=== PATIENT | female | born 1975 | race Caucasian/White ===

== ENCOUNTER 2019-03-14 20:00 | Outpatient (CLI) | payer MEDICAID, SELFPAY | END 2019-03-14 20:01 | disposition home or self-care (01) | LOC: SLEEP 03-15 09:35 | PROVIDERS: Visit Provider Internal Medicine | DX: G47.33 Obstructive sleep apnea (adult) (pediatric) (principal) | CPT/HCPCS: 95810; 95811 ==

== ENCOUNTER 2019-04-10 07:20 | Day surgery (SDC) | payer MEDICAID, SELFPAY ==
[2019-04-09 11:08] VITALS: BMI 38.2
[2019-04-10] VITALS (9 sets, daily range): BP systolic 104–128; BP diastolic 50–83; PULSE 50–68; RESP 14–20; TEMP 36.2–37; O2SAT 9–98
--- NOTE | 2019-04-10 07:56 | W.PM.OPSUD ---
Surgery/Procedure H&P Update DATE OF PROCEDURE: April 10, 2019 DATE H&P PERFORMED: 03/29/19 H&P UPDATE INFORMATION: I have reviewed H&P completed within last 30 days, I have examined patient prior to procedure and No changes to prior documentation PREOP DIAGNOSIS: Incisional hernia PLANNED PROCEDURE: Operation Date: 04/10/19 09:10 Proposed Procedures p Laparoscopic Incisional Hernia Repair w/ Mesh [id number] K43.2(Not Applicable) - Darío Zavala MD
[2019-04-10] MEDS: sodium chloride 0.9% 1,000 ML 30 ML IV (08:06)
--- NOTE | 2019-04-10 08:09 | ANES.PREANE2 ---
Pre-Anesthetic Assessment Pre-Anesthetic Assessment: Height/Weight: Height 1.65 m Weight 104.326 kg Temp Pulse Resp BP Pulse Ox 97.9 F 66 18 128/83 98 04/10/19 07:50 04/10/19 07:50 04/10/19 07:50 04/10/19 07:50 04/10/19 07:50 Preop Diagnosis: Incisional hernia Proposed Procedure: Operation Date: 04/10/19 09:10 Proposed Procedures p Laparoscopic Incisional Hernia Repair w/ Mesh [id number] K43.2(Not Applicable) - Darío Zavala MD Familial anesthetic complications: None Was Beta Olive taken within 24 hours: N/A Last intake: Intake Last Liquid Date 04/09/19 Last Liquid Time 22:00 Last Solid Date 04/09/19 Last Solid Time 21:30 Social: Social History: No alcohol and No tobacco Exam: Pre-Anes Outpt Exam: alert, oriented x 3, clear to auscultation bilaterally and regular rate & rhythm Airway: Cervical ROM: WNL MP: 2 Dentition: Chipped Additional comments: missing Pulmonary: Pulmonary: Asthma and Sleep apnea (cpap (she's getting it neck monday)) CV/HEM: CV/HEM: None reported : : None reported Hepatic: Comments: fatty liver GI: GI: GERD Metabolic: Metabolic: None reported Musc/skel: Musc/skel: None reported Neuropsych: Neuropsych: None reported Anesthetic Plan: ASA status: 2 Anesthesia: General Risk of > 500 ml blood loss (7ml/kg in children): No Meds/Allergies Current Medications: Current Medications Generic Name Dose Route Start Last Admin Trade Name Freq PRN Reason Stop Dose Admin Sodium Chloride 1,000 mls @ 30 ml s/hr 04/10/19 08:00 04/10/19 08:06 Sodium Chloride 0.9% IV 04/11/19 07:59 30 mls/hr .Q24H [place] Administration PFSH Anesthesia PFSH: Social History Smoking and tobacco status: never smoked Second hand smoke exposure: No Alcohol intake: never Adopted: No Caregiver/support person: Yes Lives independently: Yes Housing: House Marital status: Single service: No Current occupational status: disabled Current occupational exposures/hazards: No Pets and animals: No History of recent travel: No Leisure activites: exercise Sexually active: Yes Current gender identity: Female Female Reproductive History: Date of last menstrual period: 04/08/19 Data Anesthesia Cardiac Studies: No Data to Display
--- NOTE | 2019-04-10 12:22 | SUR.PHASEI ---
1222- ORAL AIRWAY OUT. SIMPLE MASK AT 6LPM, SAT 99%
--- NOTE | 2019-04-10 12:56 | P.OP_ITS ---
Operative Report Date of procedure: April 10, 2019 Pre-op Diagnosis: Incisional hernia Post-op Diagnosis: Recurrent incarcerated incisional hernia containing omentum and small bowel with multiple Australian cheese defects Procedure Done: Laparoscopic repair of incisional hernia with Laparoscopic lysis of adhesions 30 minutes Pathology: none sent Surgeon: Darío Zavala Anesthesia: General Condition: stable Disposition: PACU Procedure: The patient was taken to the Operating Room and was intubated under general anesthesia after the antibiotic had been administered. The abdomen was prepped and draped in a sterile manner. Using a 15 blade, a 2-cm incision was made in the right upper quadrant in the anterior axillary line and pneumoperitoneum was created using open Barboza technique . A 10 mm Lizabeth port was placed and 15 mm of pneumoperitoneum was created after a 10 mm 30? scope had been introduced. 5 mm ports were placed at the level of the umbilicus and in the right and left lower quadrant under direct visualization. Using a combination of electrocautery and scissors the peritoneum in the midline was taken down and the omental fat within the hernial sac was reduced. There was a second hernia defect inferiorly containing small bowel which was also reduced. there was a second hernia defect inferiorly containing small bowel which was also reduced. There were adhesions in the superior aspect of the laparotomy scar which was taken down using electrocautery and scissors. Laparoscopic lysis of adhesions was performed for about 30 minutes.The dissection was carried superiorly along the midline by taking down the falciform ligament in order to create a space for placement of the mesh. There were multiple Australian cheese defects along the entire length of the laparotomy scarthere are multiple cysts cheese defects along the entire length of the laparotomy scar. . A spinal needle was introduced through the abdominal wall and the edges of the hernial defect were marked and measured 18 x 12 cm . A 3-4 cm margin was marked on the abdominal wall on the outer edge of the hernial defect. 25 x [address] mesh was selected and 4 separate 2-0 [place] sutures were placed at the 4 corners of the mesh. A 5 mm camera was introduced and the mesh was introduced through the 10 mm port. Grannie needle was passed through the stab incisions and used to grasp the free ends of the [place] sutures which were then used to pull the mesh up against the abdominal wall; 5 mm SecurStraps and Optifix were placed 1 cm apart along the edge of the mesh to hold it against the abdominal wall. At the end of this, it was noted that the mesh was well positioned over the hernial defect. 20 mL of saline with 20 mL of 0.5% Marcaine was to 20 mL of Exparel was injected under laparoscopic visualization for TAP block. All ports were removed under direct visualization and there was no bleeding noted from the port sites. The external oblique aponeurosis was approximated at this port site using figure of eight 0 Vicryl suture. The subcutaneous tissue was approximated using 3-0 Vicryl sutures. The skin at all 4 port sites was closed using subcuticular 4-0 Monocryl suture. The stab incisions and the 4 port sites were covered with Dermabond. Abdominal binder was placed at the end of the procedure.
[2019-04-10] MEDS: ondansetron 2 mg/ML SDV 2 mL 4 MG IVP (13:14)
--- NOTE | 2019-04-10 13:14 | SUR.PHASEII ---
MEDICATED FOR NAUSEA. FAMILY AT BEDSIDE.
== END 2019-04-10 14:15 | disposition home or self-care (01) ==
PROVIDERS: PCP Nurse Practitioner Family; Visit Provider Surgery
PROC: 0WQF4ZZ Repair Abdominal Wall, Percutaneous Endoscopic Approach (ICD-10-PCS; CPT 49657; principal; 2019-04-10 09:10)
DX: K43.0 Incisional hernia with obstruction, without gangrene (principal); K21.9 Gastro-esophageal reflux disease without esophagitis
CPT/HCPCS: 49657; 12345; C1781; C9290; J0131; J0690; J1100; J1200; J1885; J2001; J2250; J2405; J2704; J2710; J3490; J7030

== ENCOUNTER 2019-04-21 03:57 | Observation (INO) | payer MEDICAID, SELFPAY ==
[2019-04-21] VITALS (15 sets, daily range): BP systolic 96–108; BP diastolic 59–80; PULSE 67–107; RESP 16–24; TEMP 36.8–37.1; O2SAT 95–97; BMI 37.3
--- NOTE | 2019-04-21 04:12 | CTR_ITS ---
PROCEDURE INFORMATION: Exam: CT Abdomen And Pelvis With Contrast Exam date and time: 04/21/2019 5:45 AM Age: 43 years old Clinical indication: Abdominal pain; Generalized; Prior surgery; Surgery date: <1 month; Patient HX: C/O n/v/d and worsening abd since mesh surgery 11 days ago; Additional info: [place], gi bleed, post op TECHNIQUE: Imaging protocol: Computed tomography of the abdomen and pelvis with intravenous contrast. Total DLP: 2011.36 mGy-cm Radiation optimization: All CT scans at this facility use at least one of these dose optimization techniques: automated exposure control; mA and/or kV adjustment per patient size (includes targeted exams where dose is matched to clinical indication); or iterative reconstruction. Contrast material: OMNI 300; Contrast volume: 95 ml; Contrast route: 22G; COMPARISON: CT Chest/Abdomen/Pelvis w IV* 10/19/2018 1:26 AM FINDINGS: Lungs: Continued slight atelectasis in the right lower lobe. Liver: No interval liver disease. Gallbladder and bile ducts: Cholecystectomy again evident. Pancreas: Still no apparent pancreatic disease. Spleen: Continued absence of the spleen. Adrenals: Still no adrenal mass. Kidneys and ureters: Interval appearance of a small stone in the upper right kidney. Interval disappearance of 1 of the 2 small stones from the upper left kidney. Continued small stone in the left lower kidney. Still no hydronephrosis. Stomach and bowel: Suspicion of adhesions. No apparent bowel obstruction. No obvious wall thickening in the bowel. Extensive vascular prominence in the small bowel mesentery. Appendix: Appendectomy suspected. Intraperitoneal space: No free air. Interval mild amount of free fluid in the pelvis containing anterior density of 14 HU and posterior density of 27 HU. Vasculature: Interval slight decrease in size of the [id number] left ovarian varix. Bilateral pelvic varices slightly more evident previously. Continued left para-aortic varices just above the aortic bifurcation. Continued atherosclerosis. Still no aortic aneurysm. Lymph nodes: Enlarged bilateral inguinal nodes again evident. Continued enlarged left external iliac node. Multiple other prominent or slightly enlarged nodes evident in each pelvic sidewall. Multiple nonenlarged nodes still present along the distal aorta. Continued slight prominence of a few periportal nodes. Bladder: Unremarkable as visualized. Reproductive: Unremarkable as visualized. Bones/joints: Old compression fractures again evident. Continued degeneration of several discs. Soft tissues: Interval appearance of the mesh along the posterior aspect of the mid abdominal wall and of the fluid along the posterior margin of the mesh as well as probably extending slightly superior to it behind the epigastric wall containing density of 21 HU; focal posterior bulging of density measuring 44 HU from the superior extent of the fluid behind the epigastric wall having a length of 2.8 cm, depth of 3 cm and width of about 3.8 cm. 19 mm wide rounded area of density measuring 37 HU in the right omentum near the focal posterior bulging. Haziness elsewhere in the omentum. Suspicion of extension of the mesh through a defect in the left supraumbilical abdominal wall into the subcutaneous fat with fluid in this 4.7 cm long by 4 cm deep by 4.9 cm wide hernia measuring 12 HU; positioning of this hernia in the area of a prior hernia containing fat. Interval clearance of bowel from within the left periumbilical hernia and slight decrease in its size, with extension of part of the mesh into this hernia also suspected; fluid within the hernia measuring 17 HU. Interval stranding and haziness in the subcutaneous fat in the right superior and inferior anterior abdominal wall. No gas bubbles in the anterior abdominal wall. CT/CT abdomen pelvis w con* [id number] IMPRESSION: 1. Interval appearance of the mesh along the anterior abdominal wall; high suspicion of invagination of the mesh into the 2 hernias previously seen in the supraumbilical and periumbilical aspects of the left abdominal wall. Interval fluid along the posterior and superior aspects of the mesh with extension of the fluid into the hernias. Posterior bulging of the superior extent of the fluid behind the epigastric abdominal wall, with higher density in this area indicating a possible hematoma; smaller focus of soft tissue density in the right parasagittal omentum in this region possibly representing an additional hematoma. Haziness elsewhere in the omental fat. No gas bubbles in the anterior abdominal abnormalities to suggest the high likelihood of an abscess, therefore seroma or chronic hematoma the more likely considerations for most of the fluid in the anterior abdomen. 2. Interval mild free fluid in the pelvis possibly having a slightly hemorrhagic component. Extensive vascular prominence in the small bowel mesentery. No apparent bowel wall thickening. Suspicion of adhesions. No bowel obstruction. 3. Nephrolithiasis again evident. Interval slight changes in the renal stones detailed above. Still no hydronephrosis. 4. Interval slight decrease in size of the [id number]-uk-uqzmyxyp left ovarian varix. Bilateral pelvic varices slightly more evident previously. Continued left para-aortic varices just above the aortic bifurcation. 5. Enlarged bilateral inguinal nodes and an enlarged left external iliac node again evident. Multiple other prominent or slightly enlarged nodes still present in each pelvic sidewall along with multiple nonenlarged nodes along the distal aorta and slight prominence of a few periportal nodes. Questionable reactive nature of these nodes considering their stability. 6. Continued absence of the spleen. Other findings detailed above. Radiation Dose CTDIVOL = (mGy): DLP = 2011.36 (mGy-cm)
--- NOTE | 2019-04-21 04:18 | ED_ITS ---
Entered by Sheila Pizaon, acting as scribe for Claudy Pike DO Apr 21, 2019 03:57 HPI - Nausea/Vomiting/Diarrhea General: Chief complaint: Nausea/Vomiting/Diarrhea Stated complaint: N/V WITH BLOOD/ POST OP Time Seen by Provider: 04/21/19 04:11 Source: patient and family Mode of arrival: ambulatory History of Present Illness: HPI Narrative: 43 y/o female presents to the ED with abd pain. Pt states she had hernia repair surgery 11 days ago and had mesh placement. She has not had a chance to follow up with her surgeon and has not had any complications until now. She reports waking up with sharp, tearing pain in her upper abd. She has had N/V, secondary to her pain. Pt is in tears upon exam and says that, even her skin hurts. MD elicited complaint: nausea, vomiting and abdominal pain Pertinent past history: hernia (recent repair) Onset (ago): hour(s) Associated nausea: Yes Associated abdominal pain: Yes Location of pain: Epigastric and Periumbilical Pain consistency: constant Severity: severe Pain scale (0-10): 9 Quality: stabbing and sharp Exacerbating factors: bowel movement Relieving factors: none Context: recent surgery/procedure and history of abdominal surgery Associated symtoms: Reports nausea; Denies anxiety, change in vision, chest pain, dizziness, dysuria, headache(s) or palpitations Review of Systems Const: Denies: fever or chills Eyes: Denies: change in vision or blurry vision ENMT: Denies: post nasal drip or facial/sinus pain Card: Denies: chest pain, palpitations, irregular heart rhythm or edema Resp: Denies: shortness of breath, productive cough, non-productive cough or wheezing GI: Reports: abdominal pain, nausea and vomiting : Denies: painful urination, urinary frequency, urinary urgency or blood in urine Musc: Denies: neck pain, back pain, redness or joint warmth Skin/Breast: Reports: skin pain and skin tenderness (abd); Denies: rash, itching or redness Neuro: Denies: headache, dizziness or vertigo Psych: Denies: anxiety PFSH ED PFSH: 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 Incisional hernia Surgical History H/O esophagogastroduodenoscopy History of appendectomy History of cholecystectomy History of colonoscopy History of incisional hernia repair 04/10/19 : lap repair History of splenectomy History of tubal ligation Family History Grandmother Cancer Breast Denies family history of Anesthesia complication Bleeding disorder Social History Smoking and tobacco status: current some day smoker Second hand smoke exposure: No Alcohol intake: never Adopted: No Caregiver/support person: Yes Lives independently: Yes Housing: House Marital status: Single service: No Current occupational status: disabled Current occupational exposures/hazards: No Pets and animals: No History of recent travel: No Leisure activites: exercise Sexually active: Yes Current gender identity: Female Female Reproductive History: Date of last menstrual period: 04/11/19 Physical Exam Const: COMMON NORMALS: alert GENERAL APPEARANCE: well developed NUTRITIONAL APPEARANCE: overweight ORIENTATION/CONSCIOUSNESS: Yes awake, Yes oriented to person, Yes oriented to place and Yes oriented to time HENMT: COMMON NORMALS: normocephalic, external ears normal, external nose norm al and moist oral mucous membranes HEAD & SCALP: normocephalic FACE & SINUS: normal facial exam NOSE: external nose normal and no nasal discharge EXTERNAL EAR: Yes external ears normal MOUTH: tongue normal Eye: COMMON NORMALS: PERRL, EOMs intact bilaterally and conjunctivae normal EYELID: eyelids normal CONJUNCTIVA: Yes conjunctivae normal PUPIL: Yes PERRL Neck/C-Spine: COMMON NORMALS: full ROM Chest: COMMONS NORMALS: inspection of chest normal CHEST: Yes symmetrical chest wall rise and No tenderness Resp: COMMON NORMALS: clear to auscultation bilaterally EFFORT & INSPECTION: No tachypneic, No respiratory distress, No retractions, No uses accessory muscles and No tracheal deviation AUSCULTATION: clear to auscultation bilaterally, no rhonchi, no wheezes and lung sounds not diminished Cardio: COMMON NORMALS: regular rate and regular rhythm RATE: regular rate RHYTHM: regular rhythm HEART SOUNDS: no murmurs PERIPHERAL PULSES: radial pulses present GI: COMMON NORMALS: soft to palpation AUSCULTATION: No hyperactive bowel sounds and No hypoactive bowel sounds PALPATION: Yes soft, Yes tender, Yes guarding and No rigid PERCUSSION: no dullness to percussion and no tympanic to percussion Neuro: SENSORIUM/ORIENTATION: Yes alert, Yes oriented to person, Yes oriented to place and Yes oriented to time Psych: COMMON NORMALS: speech normal SPEECH: Yes normal speech MOOD & AFFECT: Yes tearful Skin: COMMON NORMALS: no rashes or lesions noted GENERAL SKIN EXAM: no rashes or lesions noted Course Vital Signs: Vital signs: Vital Signs Temperature 98.4 F 04/21/19 20:00 Pulse Rate 71 04/21/19 20:00 Respiratory Rate 16 04/21/19 20:56 Blood Pressure 105/72 04/21/19 20:00 Pulse Oximetry 96 04/21/19 20:00 MDM - Nausea/Vomiting/Diarrhea MDM Narrative: Medical decision making narrative: 43-year-old female 10 days or so out from abdominal hernia repair with mesh. She presents with sudden onset of significant pain. She has a leukocytosis and a high CRP. CT shows a probable hematoma, with some fluid in the pelvis that could be hemorrhage. Spoke with the surgeon on-call, he agrees to observe the patient for repeat exam, fluid resuscitation, etc. Lab Data: Labs: Lab Results 04/21/19 04/21/19 04/21/19 Range/Units 05:45 05:45 06:45 WBC 12.3 H (4.0-10.0) 10^3/ uL RBC 4.25 (4.1-5.3) 10^6/u L Hgb 12.5 (11.5-15.3) g/dL Hct 38.9 (37.0-47.0) % MCV 91.5 (81-99) fL MCH 29.4 (28.0-34.0) pg MCHC 32.1 (30.0-36.0) g/dL RDW 15.1 (12.1-15.1) % Plt Count 349 (130-400) 10^3/c mm MPV 10.0 (7.4-10.4) fL Neut % (Auto) 70.3 % Lymph % (Auto) 16.4 % [place] % (Auto) 9.3 % Eos % (Auto) 2.8 % Baso % (Auto) 0.4 % Neut # (Auto) 8.7 H (1.8-7.7) 10^3/u L Lymph # (Auto) 2.0 (0.8-4.8) 10^3/u L [place] # (Auto) 1.1 H (0.2-0.9) 10^3/u L Eos # (Auto) 0.3 (0.0-0.8) 10^3/u L Baso # (Auto) 0.1 (0.0-0.1) 10^3/u L Nucleated RBC % (a uto) 0 % Nucleated RBCs # 0.0 /100WBC Sodium 138 (136-145) mmol/L Potassium 4.4 (3.5-5.1) mmol/L Chloride 104 (98-107) mmol/L Carbon Dioxide 24 (22-29) mmol/L Anion Gap 14.4 (5-19) BUN 7 (6-20) mg/dL Creatinine 0.5 (0.5-0.9) mg/dL GFR Calculation 136.0 H (90-130) mL/min Glucose 153 H (65-115) mg/dL Calculated Osmolal ity 285 (285-295) mOsm/k g Calcium 8.1 L (8.5-10.5) mg/dL Total Bilirubin 1.5 H (0.15-1.2) mg/dL AST 35 H (0-32) U/L ALT 22 (0-33) U/L Alkaline Phosphata se 416 H (35-105) IU/L C-Reactive Protein 63.5 H (0.0-4.9) mg/L Total Protein 7.4 (6.6-8.7) g/dL Albumin 2.7 L (3.5-5.2) g/dL Globulin 4.7 H (1.3-4.6) g/dL Lipase 21 (13-60) U/L Urine Color Yellow (Yellow) Urine Appearance Cloudy (CLEAR) Urine pH 5 (5-7) Ur Specific Gravit y 1.015 (1.005-1.030) Urine Protein Neg (Negative) Urine Glucose (UA) Norm (Normal) Urine Ketones Negative (Negative) Urine Blood Neg (Negative) Urine Nitrate Negative (Negative) Urine Bilirubin 1+ H (NEGATIVE) Urine Urobilinogen 8 H (Negative) mg/dL Ur Leukocyte Jenni ase 1+ H (Negative) Urine RBC None (0-2) /hpf Urine WBC 15-25 H (0-5) /hpf Ur Squamous Epith Cells 15-25 H (0-5) Urine Bacteria 1+ H (NONE) Discharge Plan Discharge Patient Disposition: Admitted As Inpatient Admit Provider: Roger Ghosh Discharge Date/Time: 04/21/19 08:30 Coding Level of Care Code ED Bucket Pusher for Chg Fwd Exam Comprehensive The documentation recorded by the Harinder swanson Ashley, accurately reflects the service I personally performed and the decisions made by Shahzad lipscomb Jeremy John, DO Apr 21, 2019 03:57
[2019-04-21] MEDS: sodium chloride 0.9% 1,000 ML 999 ML IV (05:00)
[2019-04-21] MEDS: HYDROmorphone 1 mg/mL INJ 1 mL IVP ×5 (05:11→20:56)
[2019-04-21] MEDS: ondansetron 2 mg/ML SDV 2 mL 4 MG IVP (05:12)
[2019-04-21] MEDS: iohexol 300 mg/mL 100 mL Btl IV (05:23)
[2019-04-21 06:02] LABS: Basophils # 0.1 10^3/uL (0.0-0.1); Basophils % 0.4 %; Eosinophils # 0.3 10^3/uL (0.0-0.8); Eosinophils % 2.8 %; Hematocrit 38.9 % (37.0-47.0); Hemoglobin 12.5 g/dL (11.5-15.3); Lymphocytes % 16.4 %; Mean Corpuscular HGB Conc 32.1 g/dL (30.0-36.0); Mean Corpuscular Hemoglobin 29.4 pg (28.0-34.0); Mean Corpuscular Volume 91.5 fL (81-99); Monocytes # 1.1 10^3/uL (0.2-0.9); Monocytes % 9.3 %; Neutrophils # 8.7 10^3/uL (1.8-7.7); Neutrophils % 70.3 %; Nucleated Red Blood Cells % 0 %; Platelet Count 349 10^3/cmm (130-400); Red Blood Count 4.25 10^6/uL (4.1-5.3); Red Cell Distribution Width 15.1 % (12.1-15.1); White Blood Count 12.3 10^3/uL (4.0-10.0)
[2019-04-21 06:28] LABS: Alanine Aminotransferase 22 U/L (0-33); Albumin Level 2.7 g/dL (3.5-5.2); Alkaline Phosphatase 416 IU/L (35-105); Anion Gap 14.4 (5-19); Aspartate Amino Transferase 35 U/L (0-32); Blood Urea Nitrogen 7 mg/dL (6-20); C Reactive Protein 63.5 mg/L (0.0-4.9); Calcium 8.1 mg/dL (8.5-10.5); Carbon Dioxide 24 mmol/L (22-29); Chloride 104 mmol/L (98-107); Globulin 4.7 g/dL (1.3-4.6); Glucose 153 mg/dL (65-115); Lipase 21 U/L (13-60); Osmolality Calculated 285 mOsm/kg (285-295); Potassium 4.4 mmol/L (3.5-5.1); Sodium 138 mmol/L (136-145); Total Bilirubin 1.5 mg/dL (0.15-1.2); Total Protein 7.4 g/dL (6.6-8.7)
[2019-04-21 06:51] LABS: Bilirubin Urine 1+ (NEGATIVE); Blood Urine Neg (Negative); Glucose Urine UA Norm (Normal); Ketones Urine Negative (Negative); Nitrate Urine Negative (Negative); Protein Urine Neg (Negative); Specific Gravity, Urine 1.015 (1.005-1.030); Urine Appearance Cloudy (CLEAR); Urine Color Yellow (Yellow); pH Urine 5 (5-7)
[2019-04-21 06:52] LABS: Add Urine Microscopic? YES; Leukocyte Esterase Urine 1+ (Negative); Urobilinogen Urine 8 mg/dL (Negative)
[2019-04-21] MEDS: HYDROmorphone 1 mg/mL INJ 1 mL 0.5 MG IVP (06:53)
[2019-04-21 06:55] LABS: Add Urine Culture? No; Bacteria Urine 1+; Squamous Epithelial Cell Urine 15-25 (0-5); WBC Urine 15-25 /hpf (0-5)
--- NOTE | 2019-04-21 08:25 | PC.NURSE ---
Pt transport upstairs delayed so surgeon (Giurgis) could assess patient.
--- NOTE | 2019-04-21 08:28 | PM.HP ---
Providers/Chief Complaint Admitting Physician: Roger Ghosh MD Primary Care Provider: Oriana Huff Chief Complaint: N/V WITH BLOOD/ POST OP History of Present Illness Dedire Hutchins is a pleasant 43 year old female undergone laparoscopic recurrent ventral incisional hernia repair about 10 days ago by my partner Dr. Zavala, patient was discharged home after surgery and yesterday she started to encounter worsening abdominal pain in the middle of her abdomen in the middle of the night, patient denies any fevers chills yet she did have some vomiting and as the pain got worse she elected to come to the emergency department where a CT scan of the abdomen and pelvis was done that showed: Postoperative changes including fluid collection that could represent seroma/hematoma with questionable infolding of the mesh. But no evidence of free air or pneumatosis intestinalis General surgery was consulted for potential evaluation and intervention, patient was seen and evaluated in the emergency department. 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 She states that since then she has had more hernia repairs. Apparently the patient had a recurrent hernia before moving to [place] and she elected to wait till it gets fixed, was seen and evaluated by my partner and she agreed to proceed with laparoscopic ventral incisional hernia repair with mesh placement. 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 Incisional hernia Surgical History H/O esophagogastroduodenoscopy History of appendectomy History of cholecystectomy History of colonoscopy History of incisional hernia repair 04/10/19 : lap repair History of splenectomy History of tubal ligation Family History Grandmother Cancer Breast Denies family history of Anesthesia complication Bleeding disorder Social History Smoking and tobacco status: current some day smoker Second hand smoke exposure: No Alcohol intake: never Adopted: No Caregiver/support person: Yes Lives independently: Yes Housing: House Marital status: Single service: No Current occupational status: disabled Current occupational exposures/hazards: No Pets and animals: No History of recent travel: No Leisure activites: exercise Sexually active: Yes Current gender identity: Female Female Reproductive History: Date of last menstrual period: 04/11/19 Vitals/I&O/Wt Last Vital Signs Temp 98.7 F 04/21/19 04:05 Pulse 90 04/21/19 07:34 Resp 16 04/21/19 06:53 BP 106/65 04/21/19 07:34 Pulse Ox 96 04/21/19 07:34 04/20/19 04/21/19 04/21/19 22:59 06:59 14:59 Intake Total 1000 / 1000 Balance 1000 / 1000 Weight last 48 hrs Weight 224 lb Physical Exam Const: COMMON NORMALS: no apparent distress GENERAL APPEARANCE: cooperative ORIENTATION/CONSCIOUSNESS: Yes awake, Yes oriented to person, Yes oriented to place and Yes oriented to time HENMT: COMMON NORMALS: normocephalic HEAD & SCALP: normocephalic Eye: COMMON NORMALS: PERRL and no scleral icterus PUPIL: Yes PERRL Lymph: LYMPHATIC: no lymphadenopathy noted Chest: COMMONS NORMALS: inspection of chest normal Resp: COMMON NORMALS: normal respiratory effort and clear to auscultation bilaterally AUSCULTATION: clear to auscultation bilaterally Cardio: COMMON NORMALS: S1 normal heart sound and S2 normal heart sound; negative for no murmurs HEART SOUNDS: S1 normal and S2 normal GI: COMMON NORMALS: soft to palpation; negative for no hepatosplenomegaly INSPECTION: Yes normal to inspection PALPATION: Yes soft, No firm, Yes tender (Mostly in the epigastric and right upper quadrant and right lower quadrant), No guarding, No rigid and No no hepatosplenomegaly Data : 04/21/19 05:45 04/21/19 05:45 A&P Assessment and plan (1) Postoperative seroma: After thorough history physical examination and reviewing the chart and images with my personal interpretation, I do believe that the patient has postoperative seroma/hematoma expected after laparoscopic ventral incisional hernia repair. Pain control IV fluid resuscitation Repeated physical examination Ice packs 3-4 times a day as needed on areas of concern Assurance and education as patient is very anxious not to catch her cancer treatment appointment this coming Monday in [place]. Resume Home meds Repeat labs in the morning Likely the patient should benefit from conservative management and emphasis on placement of the abdominal binder Status: Acute Attestations Medical Necessity Statement*: Observation status Time Spent in Patient Care: 16 - 35 minutes (>than 50% of time spent in counselling and/or direct pt care on unit). Coding Level of Care Code Acute Online Project Manager for [employer] Fwd Exam Comprehensive Diagnoses Postoperative seroma
[2019-04-21] MEDS: lactated ringers 1,000 ML 125 ML IV ×2 (08:36→16:22)
--- NOTE | 2019-04-21 10:44 | PC.CHAP ---
Pastoral Care Encounter/Spiritual Assessment Type of Contact [] Declined building rental superintendent visit [] Patient/Family/Request visit [] Outpatient visit [] Follow-up visit [] Physician referral [] Code/Alert [] Routine visit [] Staff referral [] Actively dying [] Patient sleeping [] Family support [] [] Out of room [] Palliative care [] [] Receiving care in room [] Pre-surgical visit [] Trauma [] Long length of stay [] ICU visit [] Other: Relational/Emotional Strength [x] Patient feels connected with others/family/visitors/staff [] Distress [] Loneliness/isolation [] Abandonment Spirituality of Patient [] Person of Mica [] Attends Orthodox of their Mica [x] Believes in Prayer [] Reads Bible or Buddhism materials [] There are Spiritual issues to be addressed Real Estate Listing Consultant Interventions [x] Prayer [x] Active listening [x] Non-anxious presence [x] Spiritual/emotional support [] Crisis/trauma care [] Spiritual counseling [] Bereavement support [] Provided bereavement packet [] Provided Bible/devotional materials [] Provided toy/stuffed animal, coloring book to patient or family member [] Provided Communion [] Anointing/[place] [] Salvation [x] Completed spiritual assessment [] Other: Impact on Illness or Injury [] Angry [] Fearful [] Anxious [] Often cries [] Exhaustion [] Unable to work [] Unable to attend amish [] Unable to walk/stand [] Unable to read [] Unable to drive [] Unable to eat/drink [] Unable to sleep [] Unable to be with family [] Patient intubated [] Other: Summary Chaplains prayed with Patient and visitor friend. Time spent with patient 8 minutes.
[2019-04-21] MEDS: famotidine 20 mg/2 mL INJ IVP (16:22)
[2019-04-22] VITALS (8 sets, daily range): BP systolic 96–112; BP diastolic 58–70; PULSE 61–72; RESP 14–20; TEMP 36.4–36.9; O2SAT 92–96
[2019-04-22] MEDS: HYDROmorphone 1 mg/mL INJ 1 mL IVP ×3 (01:02→08:37)
[2019-04-22] MEDS: lactated ringers 1,000 ML 125 ML IV ×2 (01:02→09:26)
[2019-04-22] MEDS: famotidine 20 mg/2 mL INJ IVP (02:26)
[2019-04-22] MEDS: ondansetron 2 mg/ML SDV 2 mL 4 MG IVP (02:54)
--- NOTE | 2019-04-22 05:42 | PM.PN ---
Vitals/I&O/Wt Last Vital Signs Temp 97.7 F 04/22/19 04:00 Pulse 61 04/22/19 04:00 Resp 16 04/22/19 05:08 BP 112/70 04/22/19 04:00 Pulse Ox 95 04/22/19 04:00 04/21/19 04/21/19 04/22/19 14:59 22:59 06:59 Intake Total 1000 / 1000 970.833 / 8101.350 3902 / 2970.833 Output Total 700 / 700 Balance 1000 / 1000 970.833 / 1970.833 300 / 2270.833 Weight last 48 hrs Weight 224 lb Data : 04/21/19 05:45 04/21/19 05:45 Coding Level of Care Code Acute Supervisor [employer] for Eldon Urban
[2019-04-22 06:29] LABS: Basophils % 0.4 %; Eosinophils # 0.6 10^3/uL (0.0-0.8); Eosinophils % 5.6 %; Hematocrit 37.8 % (37.0-47.0); Hemoglobin 12.1 g/dL (11.5-15.3); Lymphocytes # 2.1 10^3/uL (0.8-4.8); Lymphocytes % 19.6 %; Mean Corpuscular Volume 93.6 fL (81-99); Mean Platelet Volume 10.3 fL (7.4-10.4); Monocytes # 1.1 10^3/uL (0.2-0.9); Monocytes % 10.3 %; Neutrophils # 6.7 10^3/uL (1.8-7.7); Neutrophils % 63.3 %; Nucleated Red Blood Cells % 0 %; Platelet Count 301 10^3/cmm (130-400); Red Blood Count 4.04 10^6/uL (4.1-5.3); Red Cell Distribution Width 15.5 % (12.1-15.1); White Blood Count 10.5 10^3/uL (4.0-10.0)
[2019-04-22 06:58] LABS: Alanine Aminotransferase 18 U/L (0-33); Albumin Level 2.7 g/dL (3.5-5.2); Alkaline Phosphatase 350 IU/L (35-105); Anion Gap 12.2 (5-19); Aspartate Amino Transferase 28 U/L (0-32); Blood Urea Nitrogen 6 mg/dL (6-20); Calcium 8.5 mg/dL (8.5-10.5); Carbon Dioxide 28 mmol/L (22-29); Chloride 103 mmol/L (98-107); Globulin 4.3 g/dL (1.3-4.6); Glomerular Filtration Rate 175.9 mL/min (90-130); Glucose 91 mg/dL (65-115); Osmolality Calculated 283 mOsm/kg (285-295); Potassium 4.2 mmol/L (3.5-5.1); Sodium 139 mmol/L (136-145); Total Bilirubin 2.6 mg/dL (0.15-1.2)
--- NOTE | 2019-04-22 10:54 | PM.PN ---
Subjective Subjective: Interval history: Patient is feeling a lot better, denies any nausea or vomiting, tolerating diet Vitals/I&O/Wt Last Vital Signs Temp 98.0 F 04/22/19 07:24 Pulse 68 04/22/19 07:24 Resp 16 04/22/19 08:37 BP 101/61 04/22/19 07:24 Pulse Ox 93 04/22/19 08:37 04/21/19 04/22/19 04/22/19 22:59 06:59 14:59 Intake Total 970.833 / 2970.833 1000 / 2970.833 1360 / 1360 Output Total 700 / 700 Balance 970.833 / 2270.833 300 / 2270.833 1360 / 1360 Weight last 48 hrs Weight 224 lb Physical Exam Narrative: EXAM NARRATIVE: Abdomen: Soft, nontender, nondistended incisions healing well Data : 04/22/19 05:29 04/22/19 05:29 A&P Assessment and plan (1) History of incisional hernia repair: Doing well DC home today Status: Acute Code(s): Z98.890 - Other specified postprocedural states; Z87.19 - Personal history of other diseases of the digestive system Attestations Medical Necessity Statement*: DC home today Coding Level of Care Code Acute Manager Business Management for Eldon Urban Diagnoses History of incisional hernia repair Z98.890; Z87.19
--- NOTE | 2019-04-22 10:55 | P.DS_ITS ---
Discharge Providers Date of Admission: 04/21/19 07:32 Date of Discharge: April 22, 2019 Attending Provider at Admission: Darío Zavala MD Attending Provider at Discharge: Darío Zavala MD Primary Care Provider: Oriana Huff Diagnoses at Discharge Discharge Diagnosis (1) History of incisional hernia repair: Status: Acute Problem details: 04/10/19 : lap repair Reason for Visit Reason for Visit: Reason For Visit: N/V WITH BLOOD/ POST OP Hospital Course Hospital Course: This is a 43-year-old female who had undergone incisional hernia repair on 04/10/2019. Patient had been doing well until day before yesterday when she started having severe abdominal pain nausea and vomiting. She was seen in the ER where CT scan showed a postop seroma/hematoma. She was admitted for overnight observation. This morning her vital signs are stable, she is ambulating, her pain is well controlled and her incisions are clean dry and intact Physical Exam Narrative: EXAM NARRATIVE: Abdomen: Nontender, nondistended incisions healing well Discharge Data Data Completed and Pending: Completed Studies During Hospitalization Category Date Time Status CT abdomen pelvis w con* [id number] Urge nt Cat Scan 04/21/19 04:12 Completed Labs from last 24 hours 04/22/19 04/22/19 05:29 05:29 WBC 10.5 H RBC 4.04 L Hgb 12.1 Hct 37.8 MCV 93.6 MCH 30.0 MCHC 32.0 RDW 15.5 H Plt Count 301 MPV 10.3 Neut % (Auto) 63.3 Lymph % (Auto) 19.6 [place] % (Auto) 10.3 Eos % (Auto) 5.6 Baso % (Auto) 0.4 Neut # (Auto) 6.7 Lymph # (Auto) 2.1 [place] # (Auto) 1.1 H Eos # (Auto) 0.6 Baso # (Auto) 0.0 Nucleated RBC % (a uto) 0 Nucleated RBCs # 0.0 Sodium 139 Potassium 4.2 Chloride 103 Carbon Dioxide 28 Anion Gap 12.2 BUN 6 Creatinine 0.4 L GFR Calculation 175.9 H Glucose 91 Calculated Osmolal ity 283 L Calcium 8.5 Total Bilirubin 2.6 H AST 28 ALT 18 Alkaline Phosphata se 350 H Total Protein 7.0 Albumin 2.7 L Globulin 4.3 Vitals: Last Vital Signs Temp 98.0 F 04/22/19 07:24 Pulse 68 04/22/19 07:24 Resp 16 04/22/19 08:37 BP 101/61 04/22/19 07:24 Pulse Ox 93 04/22/19 08:37 Discharge Plan Discharge Patient Disposition: Home, Self-Care Condition: Stable Prescriptions: New Percocet 5-325 mg tablet 1 tab PO Q6H PRN (Reason: pain) Qty: 20 RF: 0 docusate sodium [Colace] 100 mg capsule 100 mg PO BID Qty: 60 RF: 0 Continued albuterol sulfate 90 mcg/actuation HFA aerosol inhaler 2 puff INHALATION Q6H PRN (Reason: sob) RF: 0 azathioprine 100 mg tablet 100 mg PO DAILY RF: 0 hydrocodone-acetaminophen 10-325 mg tablet 1 tab PO Q8H PRN (Reason: pain) RF: 0 triamcinolone acetonide 0.1 % cream 1 applic TOPICAL TID RF: 0 hydroxyzine HCl 50 mg tablet 50 mg PO DAILY RF: 0 ibuprofen 600 mg tablet 600 mg PO Q6H PRN (Reason: pain) RF: 0 lidocaine 5 % adhesive patch,medicated 1 patch TOPICAL DAILY RF: 0 loratadine 10 mg tablet 10 mg PO DAILY RF: 0 methocarbamol 750 mg tablet 750 mg PO DAILY PRN (Reason: pain) RF: 0 naproxen 500 mg tablet 500 mg PO BID RF: 0 omeprazole 40 mg capsule,delayed release(DR/EC) 40 mg PO DAILY RF: 0 ondansetron HCl 4 mg tablet 4 mg PO Q8H RF: 0 pantoprazole 40 mg tablet,delayed release (DR/EC) 40 mg PO DAILY RF: 0 promethazine 6.25 mg/5 mL syrup 6.25 mg PO Q6H PRN (Reason: cough) RF: 0 Robafen CF (phenylephrine) 5-10-100 mg/5 mL liquid 10 ml PO Q6H PRN (Reason: cough) RF: 0 tizanidine 4 mg capsule 4 mg PO Q6H PRN (Reason: pain) RF: 0 ursodiol 250 mg tablet 250 mg PO BID RF: 0 benzonatate 200 mg capsule 200 mg PO TID PRN (Reason: pain) RF: 0 fluticasone propion-salmeterol [Wixela Inhub] 100-50 mcg/dose blister with device 1 puff INHALATION BID RF: 0 hydroxyzine HCl 25 mg tablet 25 mg PO DAILY PRN (Reason: pain) RF: 0 albuterol sulfate 2.5 mg /3 mL (0.083 %) solution for nebulization 2.5 mg INHALATION QID RF: 0 cetirizine 10 mg tablet 10 mg PO DAILY RF: 0 Percocet 5-325 mg tablet 1 tab PO Q6H PRN (Reason: pain) Qty: 20 RF: 0 Colace 100 mg capsule 100 mg PO BID Qty: 30 RF: 0 Discharge Orders: Discharge Order (Routine); Ordered 04/22/19 Ordered By: Darío Zavala Discharge Diet: Advance as tolerated Activity Restrictions/Additional Instructions: 1. Up and walking as tolerated. 2. Ok to shower 3. Remove Dermabond dressing in 7-10 days. 4. Do not lift more than 10 pounds. 5. Do not operate heavy machinery or drive while using pain medications. 6. Advised to return to ER or contact my office if there are any signs of infection like, increasing pain, fevers, chills, redness or drainage of pus. 7. Abdominal binder while ambulating Discharge Attestations Time Spent in Discharge Care*: less than 30 min Quality Metrics Clinical Quality Measures During this hospital stay, did patient experience: None Coding Level of Care Code Acute Grain Operations Manager for Eldon Urban Diagnoses History of incisional hernia repair Z98.890; Z87.19
--- NOTE | 2019-04-22 11:55 | PC.NURSE ---
Patient discharged to private vehicle. Ambulated with steady gait. Reviewed discharge instructions and patient verbalized understanding of prescribed medication and instructions. Went home with family.
== END 2019-04-22 11:55 | disposition home or self-care (01) ==
LOC: ER 05:40 → MEDSURG 07:46
PROVIDERS: Admitting Provider Surgery; Emergency Provider Emergency Medicine; PCP Nurse Practitioner Family; Visit Provider Surgery
DX: L76.34 Postprocedural seroma of skin and subcutaneous tissue following other procedure (principal); F17.210 Nicotine dependence, cigarettes, uncomplicated
CPT/HCPCS: 12345; 36415; 74177; 80053; 81001; 83690; 85025; 86140; 96360; 96361; 96374; 96375; 96376; 99283; 99285; A9270; G0378; J1170; J2405; J3490; J7030; Q9967

== ENCOUNTER 2019-04-21 03:57 | Emergency (ER) | payer MEDICAID, SELFPAY | END 2019-04-21 08:30 | disposition admitted as inpatient to this hospital (09) | LOC: ER 05-23 10:10 | PROVIDERS: Emergency Provider Emergency Medicine; PCP Nurse Practitioner Family | DX: Z01.89 Encounter for other specified special examinations (principal) ==

== ENCOUNTER 2019-04-23 20:56 | Inpatient (IN) | payer MEDICAID, SELFPAY ==
[2019-04-23 21:05] VITALS: BP 102/75; PULSE 84; RESP 22; TEMP 37.3; O2SAT 98; BMI 37.3
[2019-04-23 21:35] LABS: Basophils % 0.4 %; Eosinophils # 0.2 10^3/uL (0.0-0.8); Eosinophils % 1.9 %; Hematocrit 39.8 % (37.0-47.0); Hemoglobin 12.6 g/dL (11.5-15.3); Lymphocytes # 2.6 10^3/uL (0.8-4.8); Lymphocytes % 22.7 %; Mean Corpuscular HGB Conc 31.7 g/dL (30.0-36.0); Mean Corpuscular Hemoglobin 30.3 pg (28.0-34.0); Mean Corpuscular Volume 95.7 fL (81-99); Mean Platelet Volume 9.8 fL (7.4-10.4); Monocytes # 0.8 10^3/uL (0.2-0.9); Monocytes % 7.1 %; Neutrophils # 7.7 10^3/uL (1.8-7.7); Neutrophils % 67.4 %; Nucleated Red Blood Cells % 0 %; Platelet Count 345 10^3/cmm (130-400); Red Blood Count 4.16 10^6/uL (4.1-5.3); Red Cell Distribution Width 15.1 % (12.1-15.1); White Blood Count 11.4 10^3/uL (4.0-10.0)
[2019-04-23 21:53] LABS: Alanine Aminotransferase 15 U/L (0-33); Albumin Level 2.9 g/dL (3.5-5.2); Alkaline Phosphatase 328 IU/L (35-105); Anion Gap 13.6 (5-19); Aspartate Amino Transferase 25 U/L (0-32); Blood Urea Nitrogen 6 mg/dL (6-20); Calcium 8.7 mg/dL (8.5-10.5); Carbon Dioxide 24 mmol/L (22-29); Chloride 100 mmol/L (98-107); Globulin 4.4 g/dL (1.3-4.6); Glucose 152 mg/dL (65-115); Osmolality Calculated 277 mOsm/kg (285-295); Potassium 3.6 mmol/L (3.5-5.1); Sodium 134 mmol/L (136-145); Total Bilirubin 1.1 mg/dL (0.15-1.2); Total Protein 7.3 g/dL (6.6-8.7)
[2019-04-23 23:18] VITALS: BP 105/69; PULSE 73; RESP 18; O2SAT 96
[2019-04-24] VITALS (23 sets, daily range): BP systolic 97–158; BP diastolic 58–85; PULSE 70–101; RESP 15–24; TEMP 36.9–37.3; O2SAT 93–100
--- NOTE | 2019-04-24 01:40 | ED_ITS ---
Entered by Kristal Mcconnell, acting as scribe for Ck Hernandez DO Apr 23, 2019 20:56 HPI - Abdominal Pain General: Chief Complaint: Abdominal Pain Stated Complaint: abd pain/post op surgery Time Seen by Provider: 04/24/19 01:23 Source: patient Mode of arrival: ambulatory Limitations: no limitations History of Present Illness: HPI narrative: 43 yo f came to the er pov for abd pain and post opp pain. Pt was admitted on monday morning for a mesh that she had. Pt has nonlynchphoma and has a dr in [facility]. Pt states that she has been having pain all day. Pt said that she was had a pop across the lower part of her abd, pt said that there was a lot of burning and pain. Pt was decided to leave the hospital on Monday. Pt states that she called last night about 2029 - 2099 and told her to come into the er for evaluation. Pt states that she has not had pain or burning with urination. MD elicited complaint: abdominal pain Pertinent past history: other (mesh placemnet lower abd) Onset (ago): day(s) (last night) Pain Consistency: constant Location: RLQ and LLQ Severity: moderate Quality: stabbing and sharp Radiation: none Migration to: no migration Exacerbating factors: nothing Relieving factors: nothing Associated Symptoms: Denies bloating, chills, coffee ground emesis, constipation, diarrhea, dysuria, fever(s), hematochezia, hematemesis, melena, nausea and vomiting Related Data: Date of Last Menstrual Period: 04/11/19 Review of Systems General: Reports: other (negative unless marked) Const: Denies: fever, chills, body aches, change in appetite, fatigue or malaise ENMT: Denies: throat pain, ear pain, nasal discharge or nasal congestion Card: Denies: chest pain, edema, shortness of breath on exertion or shortness of breath when lying down Resp: Denies: shortness of breath, productive cough or non-productive cough GI: Reports: abdominal pain; Denies: nausea, vomiting, vomiting blood, coffee grounds in vomit, diarrhea, constipation, bloating, blood in stool or black tarry stool : Denies: flank pain, difficulty urinating, painful urination, urinary frequency or urinary urgency Skin/Breast: Denies: rash or itching PFSH ED PFSH: 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 Incisional hernia Surgical History H/O esophagogastroduodenoscopy History of appendectomy History of cholecystectomy History of colonoscopy History of incisional hernia repair 04/10/19 : lap repair History of splenectomy History of tubal ligation Family History Grandmother Cancer Breast Denies family history of Anesthesia complication Bleeding disorder Social History Smoking and tobacco status: current some day smoker Second hand smoke exposure: No Alcohol intake: never Adopted: No Caregiver/support person: Yes Lives independently: Yes Housing: House Marital status: Single service: No Current occupational status: disabled Current occupational exposures/hazards: No Pets and animals: No History of recent travel: No Leisure activites: exercise Sexually active: Yes Current gender identity: Female Female Reproductive History: Date of last menstrual period: 04/11/19 Physical Exam Const: COMMON NORMALS: no apparent distress GENERAL APPEARANCE: cooperative and comfortable ORIENTATION/CONSCIOUSNESS: Yes awake, Yes oriented to person, Yes oriented to place and Yes oriented to time HENMT: COMMON NORMALS: normocephalic, head/scalp atraumatic, hearing grossly normal bilaterally, external ears normal, EAC's normal, TM's normal bilaterally, nasal mucous membranes and turbinates normal, moist oral mucous membranes and oropharynx normal HEAD & SCALP: normocephalic and atraumatic NOSE: nasal mucous membranes and turbinates normal EXTERNAL EAR: Yes external ears normal EXTERNAL AUDITORY CANAL: EAC's normal TYMPANIC MEMBRANE: TM's normal bilaterally Eye: COMMON NORMALS: PERRL, EOMs intact bilaterally, conjunctivae normal and no scleral icterus CONJUNCTIVA: Yes conjunctivae normal PUPIL: Yes PERRL Neck/C-Spine: COMMON NORMALS: full ROM, no lymphadenopathy, supple and no JVD Lymph: LYMPHATIC: no lymphadenopathy noted and no lymphedema noted Resp: COMMON NORMALS: normal respiratory effort, no retractions, no use of accessory muscles and clear to auscultation bilaterally AUSCULTATION: clear to auscultation bilaterally Cardio: COMMON NORMALS: no JVD, regular rate, regular rhythm and no murmurs RATE: regular rate RHYTHM: regular rhythm GI: COMMON NORMALS: soft to palpation and no hepatosplenomegaly AUSCULTATION: Yes normoactive bowel sounds PALPATION: Yes soft, No tender, No guarding and Yes no hepatosplenomegaly Extremity: COMMON NORMALS: normal to inspection, normal capillary refill, no clubbing, cyanosis or edema, no calf tenderness and no pedal edema Neuro: SENSORIUM/ORIENTATION: Yes oriented to person, Yes oriented to place and Yes oriented to time Skin: COMMON NORMALS: no rashes or lesions noted GENERAL SKIN EXAM: no rashes or lesions noted Course ED course: Reviewed findings with patient and with Dr. babb on-call for surgery. Will admit started on IV antibiotics consult to Dr. Zavala. Vital Signs: Vital signs: Vital Signs Temperature 98.7 F 04/25/19 17:24 Pulse Rate 73 04/25/19 17:24 Respiratory Rate 16 04/25/19 17:24 Blood Pressure 104/62 04/25/19 17:24 Pulse Oximetry 95 04/25/19 17:24 MDM - Abdominal Pain Lab Data: Labs: Lab Results 04/23/19 04/23/19 04/23/19 Range/Units 21:25 21:25 21:25 WBC 11.4 H (4.0-10.0) 10^3/ uL RBC 4.16 (4.1-5.3) 10^6/u L Hgb 12.6 (11.5-15.3) g/dL Hct 39.8 (37.0-47.0) % MCV 95.7 (81-99) fL MCH 30.3 (28.0-34.0) pg MCHC 31.7 (30.0-36.0) g/dL RDW 15.1 (12.1-15.1) % Plt Count 345 (130-400) 10^3/c mm MPV 9.8 (7.4-10.4) fL Neut % (Auto) 67.4 % Lymph % (Auto) 22.7 % [place] % (Auto) 7.1 % Eos % (Auto) 1.9 % Baso % (Auto) 0.4 % Neut # (Auto) 7.7 (1.8-7.7) 10^3/u L Lymph # (Auto) 2.6 (0.8-4.8) 10^3/u L [place] # (Auto) 0.8 (0.2-0.9) 10^3/u L Eos # (Auto) 0.2 (0.0-0.8) 10^3/u L Baso # (Auto) 0.0 (0.0-0.1) 10^3/u L Nucleated RBC % (a uto) 0 % Nucleated RBCs # 0.0 /100WBC Sodium 134 L (136-145) mmol/L Potassium 3.6 (3.5-5.1) mmol/L Chloride 100 (98-107) mmol/L Carbon Dioxide 24 (22-29) mmol/L Anion Gap 13.6 (5-19) BUN 6 (6-20) mg/dL Creatinine 0.5 (0.5-0.9) mg/dL GFR Calculation 136.0 H (90-130) mL/min Glucose 152 H (65-115) mg/dL Calculated Osmolal ity 277 L (285-295) mOsm/k g Lactate (0.5-2.2) mmol/L Calcium 8.7 (8.5-10.5) mg/dL Total Bilirubin 1.1 (0.15-1.2) mg/dL AST 25 (0-32) U/L ALT 15 (0-33) U/L Alkaline Phosphata se 328 H (35-105) IU/L Total Protein 7.3 (6.6-8.7) g/dL Albumin 2.9 L (3.5-5.2) g/dL Globulin 4.4 (1.3-4.6) g/dL Lipase 20 (13-60) U/L Urine Color (Yellow) Urine Appearance (CLEAR) Urine pH (5-7) Ur Specific Gravit y (1.005-1.030) Urine Protein (Negative) Urine Glucose (UA) (Normal) Urine Ketones (Negative) Urine Blood (Negative) Urine Nitrate (Negative) Urine Bilirubin (NEGATIVE) Urine Urobilinogen (Negative) mg/dL Ur Leukocyte Jenni ase (Negative) Urine RBC (0-2) /hpf Urine WBC (0-5) /hpf Ur Squamous Epith Cells (0-5) Calcium Oxalate Cr ystal /hpf Urine Bacteria (NONE) 04/24/19 04/24/19 Range/Units 02:00 02:00 WBC (4.0-10.0) 10^3/ uL RBC (4.1-5.3) 10^6/u L Hgb (11.5-15.3) g/dL Hct (37.0-47.0) % MCV (81-99) fL MCH (28.0-34.0) pg MCHC (30.0-36.0) g/dL RDW (12.1-15.1) % Plt Count (130-400) 10^3/c mm MPV (7.4-10.4) fL Neut % (Auto) % Lymph % (Auto) % [place] % (Auto) % Eos % (Auto) % Baso % (Auto) % Neut # (Auto) (1.8-7.7) 10^3/u L Lymph # (Auto) (0.8-4.8) 10^3/u L [place] # (Auto) (0.2-0.9) 10^3/u L Eos # (Auto) (0.0-0.8) 10^3/u L Baso # (Auto) (0.0-0.1) 10^3/u L Nucleated RBC % (a uto) % Nucleated RBCs # /100WBC Sodium (136-145) mmol/L Potassium (3.5-5.1) mmol/L Chloride (98-107) mmol/L Carbon Dioxide (22-29) mmol/L Anion Gap (5-19) BUN (6-20) mg/dL Creatinine (0.5-0.9) mg/dL GFR Calculation (90-130) mL/min Glucose (65-115) mg/dL Calculated Osmolal ity (285-295) mOsm/k g Lactate 1.0 (0.5-2.2) mmol/L Calcium (8.5-10.5) mg/dL Total Bilirubin (0.15-1.2) mg/dL AST (0-32) U/L ALT (0-33) U/L Alkaline Phosphata se (35-105) IU/L Total Protein (6.6-8.7) g/dL Albumin (3.5-5.2) g/dL Globulin (1.3-4.6) g/dL Lipase (13-60) U/L Urine Color Dark yellow (Yellow) Urine Appearance Cloudy (CLEAR) Urine pH 6 (5-7) Ur Specific Gravit y 1.020 (1.005-1.030) Urine Protein Neg (Negative) Urine Glucose (UA) Norm (Normal) Urine Ketones Negative (Negative) Urine Blood Neg (Negative) Urine Nitrate Negative (Negative) Urine Bilirubin 1+ H (NEGATIVE) Urine Urobilinogen 4+ H (Negative) mg/dL Ur Leukocyte Jenni ase Trace H (Negative) Urine RBC 0-4 H (0-2) /hpf Urine WBC 25-40 H (0-5) /hpf Ur Squamous Epith Cells 15-25 H (0-5) Calcium Oxalate Cr ystal 10-15 H /hpf Urine Bacteria 1+ H (NONE) Imaging Data ^: CT Abd/Pel: Radiologist's impression: [place] [address] CT Scan Report Signed Patient: Neeraj Hutchins #: [id number] : 1975Acct#:[id number] Age/Sex: 43 / FADM Date: 04/23/19 Loc: ERRoom/Bed: Attending Dr: Ordering Provider/Ordering MD: Ck Hernandez DO Date of Service: 04/24/19 Procedure(s): CT abdomen pelvis w con* [id number] Accession Number(s): [id number] Report Number: [id number] PROCEDURE INFORMATION: Exam: CT Abdomen And Pelvis With Contrast Exam date and time: 04/24/2019 2:01 AM Age: 43 years old Clinical indication: Abdominal pain; Generalized; Prior surgery; Surgery type: Splenectomy, appendectomy, cholecystectomy, btl; Additional info: Abd pain TECHNIQUE: Imaging protocol: Computed tomography of the abdomen and pelvis with intravenous contrast. Total DLP: 2007.42 mGy-cm Radiation optimization: All CT scans at this facility use at least one of these dose optimization techniques: automated exposure control; mA and/or kV adjustment per patient size (includes targeted exams where dose is matched to clinical indication); or iterative reconstruction. Contrast material: OMNI 300; Contrast volume: 95 ml; Contrast route: 20G; COMPARISON: CT abdomen pelvis w con* [id number] 04/21/2019 5:20 AM FINDINGS: Liver: No mass. Gallbladder and bile ducts: Status post cholecystectomy. Pancreas: No ductal dilation. Spleen: Status post splenectomy. Adrenals: No mass. Kidneys and ureters: No hydronephrosis. Nonobstructing renal calculi. Stomach and bowel: Nonspecific fluid-filled loops of small bowel in the lower abdomen and pelvis with scattered air-fluid levels. Findings may represent ileus or low-grade obstruction. Appendix: The appendix is not identified. Intraperitoneal space: No free air. See below. Vasculature: No abdominal aortic aneurysm. Lymph nodes: Slightly prominent inguinal and pelvic lymph nodes. Bladder: Unremarkable as visualized. Reproductive: Unremarkable as visualized. Bones/joints: Stable appearance of the bony structures. Soft tissues: Postsurgical changes from previous hernia repair with redemonstration of a large fluid collection along the anterior peritoneal wall increased in size compared to prior exam measuring 16 x 7.2 x 11 cm, internal Hounsfield units of 14. Again identified is invagination of this fluid collection through the left periumbilical abdominal wall measuring 4.6 x 4.8 cm in greatest axial dimensions, similar to prior exam. There is a 2nd fluid collection with herniation through the left infraumbilical abdominal wall measuring 4.1 x 3.8 cm, slightly increased in size. Superinfected collections are not excluded. There is adjacent soft tissue edema/cellulitis. CT/CT abdomen pelvis w con* [id number] IMPRESSION: 1. Postsurgical changes from previous hernia repair with redemonstration of a large fluid collection along the anterior peritoneal wall increased in size compared to prior exam measuring 16 x 7.2 x 11 cm. Again identified is invagination of this fluid collection through the left periumbilical abdominal wall measuring 4.6 x 4.8 cm in greatest axial dimensions, similar to prior exam. There is a 2nd fluid collection with herniation through the left infraumbilical abdominal wall measuring 4.1 x 3.8 cm, slightly increased in size. Superinfected collections are not excluded. There is adjacent soft tissue edema/cellulitis. 2. Nonspecific fluid-filled loops of small bowel in the lower abdomen and pelvis with scattered air-fluid levels. Findings may represent ileus or low-grade obstruction. Radiation Dose CTDIVOL = (mGy): DLP = 2007.42 (mGy-cm) Dictated By:Kalyan Escoto MD Signed By:Kalyan Escoto MDSigned Date/Time:04/24/19426 Discharge Plan Discharge Patient Disposition: Admitted As Inpatient Admit Provider: Darío Zavala Clinical Impression: History of incisional hernia repair, Cellulitis Condition: Stable Discharge Orders: Discharge Order (Routine); Ordered 04/25/19 Ordered By: Darío Zavala Referrals: [facility] ([facility]) [Outside] Darío Zavala MD [Physician] - 04/29/19 1:00 pm (PLEASE CALL TD SURE YOUR APPOINTMENT) Oriana Huff FNP [Primary Care Provider] - (please call for appOINTMENT) Patient Instructions: Cephalexin (By mouth), Oxycodone/Acetaminophen (By mouth), Cellulitis (DC), Endoscopic Total Extraperitoneal Hernia Repair (DC) Discharge Date/Time: 04/24/19 12:07 Coding Level of Care Code ED Composite Boat Builder for Chg Fwd Exam Comprehensive The documentation recorded by the Jayesh swanson Stephanie Lyn, accurately reflects the service I personally performed and the decisions made by , Ck Hernandez DO Apr 23, 2019 20:56
--- NOTE | 2019-04-24 01:58 | CTR_ITS ---
PROCEDURE INFORMATION: Exam: CT Abdomen And Pelvis With Contrast Exam date and time: 04/24/2019 2:01 AM Age: 43 years old Clinical indication: Abdominal pain; Generalized; Prior surgery; Surgery type: Splenectomy, appendectomy, cholecystectomy, btl; Additional info: Abd pain TECHNIQUE: Imaging protocol: Computed tomography of the abdomen and pelvis with intravenous contrast. Total DLP: 2007.42 mGy-cm Radiation optimization: All CT scans at this facility use at least one of these dose optimization techniques: automated exposure control; mA and/or kV adjustment per patient size (includes targeted exams where dose is matched to clinical indication); or iterative reconstruction. Contrast material: OMNI 300; Contrast volume: 95 ml; Contrast route: 20G; COMPARISON: CT abdomen pelvis w con* [id number] 04/21/2019 5:20 AM FINDINGS: Liver: No mass. Gallbladder and bile ducts: Status post cholecystectomy. Pancreas: No ductal dilation. Spleen: Status post splenectomy. Adrenals: No mass. Kidneys and ureters: No hydronephrosis. Nonobstructing renal calculi. Stomach and bowel: Nonspecific fluid-filled loops of small bowel in the lower abdomen and pelvis with scattered air-fluid levels. Findings may represent ileus or low-grade obstruction. Appendix: The appendix is not identified. Intraperitoneal space: No free air. See below. Vasculature: No abdominal aortic aneurysm. Lymph nodes: Slightly prominent inguinal and pelvic lymph nodes. Bladder: Unremarkable as visualized. Reproductive: Unremarkable as visualized. Bones/joints: Stable appearance of the bony structures. Soft tissues: Postsurgical changes from previous hernia repair with redemonstration of a large fluid collection along the anterior peritoneal wall increased in size compared to prior exam measuring 16 x 7.2 x 11 cm, internal Hounsfield units of 14. Again identified is invagination of this fluid collection through the left periumbilical abdominal wall measuring 4.6 x 4.8 cm in greatest axial dimensions, similar to prior exam. There is a 2nd fluid collection with herniation through the left infraumbilical abdominal wall measuring 4.1 x 3.8 cm, slightly increased in size. Superinfected collections are not excluded. There is adjacent soft tissue edema/cellulitis. CT/CT abdomen pelvis w con* [id number] IMPRESSION: 1. Postsurgical changes from previous hernia repair with redemonstration of a large fluid collection along the anterior peritoneal wall increased in size compared to prior exam measuring 16 x 7.2 x 11 cm. Again identified is invagination of this fluid collection through the left periumbilical abdominal wall measuring 4.6 x 4.8 cm in greatest axial dimensions, similar to prior exam. There is a 2nd fluid collection with herniation through the left infraumbilical abdominal wall measuring 4.1 x 3.8 cm, slightly increased in size. Superinfected collections are not excluded. There is adjacent soft tissue edema/cellulitis. 2. Nonspecific fluid-filled loops of small bowel in the lower abdomen and pelvis with scattered air-fluid levels. Findings may represent ileus or low-grade obstruction. Radiation Dose CTDIVOL = (mGy): DLP = 2007.42 (mGy-cm)
[2019-04-24 02:15] LABS: Urine Appearance Cloudy (CLEAR); Urine Color Dark Yellow (Yellow); pH Urine 6 (5-7)
[2019-04-24 02:18] LABS: Add Urine Microscopic? YES; Bilirubin Urine 1+ (NEGATIVE); Blood Urine Neg (Negative); Glucose Urine UA Norm (Normal); Ketones Urine Negative (Negative); Leukocyte Esterase Urine Trace (Negative); Nitrate Urine Negative (Negative); Protein Urine Neg (Negative); Urobilinogen Urine 4+ mg/dL (Negative)
[2019-04-24 02:25] LABS: RBC Urine 0-4 /hpf (0-2)
[2019-04-24 02:26] LABS: Squamous Epithelial Cell Urine 15-25 (0-5)
[2019-04-24 02:26] LABS: Lipase 20 U/L (13-60)
[2019-04-24 02:27] LABS: WBC Urine 25-40 /hpf (0-5)
[2019-04-24 02:28] LABS: Add Urine Culture? No; Bacteria Urine 1+
[2019-04-24] MEDS: sodium chloride 0.9% 500 ML IV (02:56)
[2019-04-24] MEDS: ondansetron 2 mg/ML SDV 2 mL 4 MG IVP (03:01)
[2019-04-24] MEDS: morphine 4 mg/mL SDV 1 mL IVP ×2 (03:01→07:29)
[2019-04-24] MEDS: iohexol 300 mg/mL 100 mL Btl IV (04:00)
--- NOTE | 2019-04-24 08:23 | PC.PHAR ---
pt states she takes these medications-called [facility] at 8:15 am and they were not open to verify medications
--- NOTE | 2019-04-24 11:46 | CT_ITS ---
WS: [id number] CT-GUIDED DRAIN PLACEMENT CLINICAL INFORMATION: INTRA ABD ABSCESS COMPARISON: None. DLP: 556.24 mGy.cm TECHNIQUE: The procedure including risk, benefits, and complications were discussed with the patient who agreed to proceed. Using sterile technique, the patient was prepped and draped in the usual steri le fashion. Patient was positioned supine and CT images were obtained through the abdomen. Ventral ab dominal fluid collection was selected. After 1% lidocaine using fluoroscopic guidance, a 18-gauge coa xial needle was advanced into the fluid collection. Approximately 10 cc of serous bloody fluid was as pirated. Fluid was sent for cultures. Using CT guidance and Seldinger technique a guidewire was advan monroe into the fluid collection. Drainage track was dilated with a 9 Namibian dilator. 8 Namibian pigtail c atheter was advanced over the guidewire into the fluid collection and connected to accordion drain. N o immediate complications CT/CT guided drainage [id number] IMPRESSION: 1. Uncomplicated 8 Namibian pigtail catheter drain placement into the ventral ab dominal fluid collection 2. 10 cc of serous bloody fluid was aspirated and sent for cultures.
[2019-04-24] MEDS: midazolam 1 mg/mL INJ 2 mL IVP ×2 (12:06→12:17)
[2019-04-24] MEDS: morphine 4 mg/mL SDV 1 mL ×2 (12:22→12:28)
--- NOTE | 2019-04-24 12:45 | SUR.OPER ---
MORPHINE 2 MG GIVEN, 2MG WASTED; VERSED 3.5 MG GIVEN, 1.5 WASTED
[2019-04-24] MEDS: D5-NS 0.45% + KCL 20 mEq 20 MEQ/1,000 ML BAG 100 MEQ IV ×2 (13:29→23:07)
[2019-04-24] MEDS: morphine 4 mg/mL SDV 1 mL 2 MG IVP ×2 (14:28→21:03)
--- NOTE | 2019-04-24 15:44 | P.HP_ITS ---
Providers/Chief Complaint Admitting Physician: Darío Zavala MD Primary Care Provider: Oriana Huff Chief Complaint: abd pain/post op surgery History of Present Illness Deidre Hutchins is a 43 year old female with history of Castleman's disease who had undergone laparoscopic incisional hernia repair with mesh on 04/10/2019. Patient is admitted to the hospital on 04/21/2019 with abdominal pain and CT scan findings showing postop seroma. This was managed conservatively. Patient was discharged home the day later but yesterday night she developed severe abdominal pain. She denies any fevers chills. 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 Incisional hernia Surgical History H/O esophagogastroduodenoscopy History of appendectomy History of cholecystectomy History of colonoscopy History of incisional hernia repair 04/10/19 : lap repair History of splenectomy History of tubal ligation Family History Grandmother Cancer Breast Denies family history of Anesthesia complication Bleeding disorder Social History Smoking and tobacco status: current some day smoker Second hand smoke exposure: No Alcohol intake: never Adopted: No Caregiver/support person: Yes Lives independently: Yes Housing: House Marital status: Single service: No Current occupational status: disabled Current occupational exposures/hazards: No Pets and animals: No History of recent travel: No Leisure activites: exercise Sexually active: Yes Current gender identity: Female Female Reproductive History: Date of last menstrual period: 04/08/19 Vitals/I&O/Wt Last Vital Signs Temp 99.2 F 04/24/19 15:34 Pulse 72 04/24/19 15:34 Resp 18 04/24/19 15:34 BP 119/73 04/24/19 15:34 Pulse Ox 97 04/24/19 15:34 04/24/19 04/24/19 04/24/19 06:59 14:59 22:59 Intake Total 550 / 550 Output Total 400 / 400 Balance 150 / 150 Weight last 48 hrs Weight 224 lb Physical Exam Const: COMMON NORMALS: no apparent distress HENMT: COMMON NORMALS: normocephalic GI: OTHER: Abdomen: Soft, tender, drain in place, incisions healing well, no guarding or rigidity Data : 04/23/19 21:25 04/23/19 21:25 Micro: Microbiology 04/24/19 04:52 Blood Culture - Preliminary Blood SPECIMEN COLLECTED 04/24/19 04:52 Blood Culture - Preliminary Blood SPECIMEN COLLECTED A&P Assessment and plan (1) History of incisional hernia repair: Status post laparoscopic incisional hernia repair with postop seroma which is increased in size over the last few days. Seroma appears to be symptomatic and therefore after discussing the case with Dr. Pagan he placed the catheter to drain the seroma. Serum output appears to be serosanguineous. We will keep her on prophylactic antibiotics, hold off on Lovenox since this could be a possible delayed bleed and use SCDs for DVT prophylaxis. We will start her on a regular diet. Recheck labs tomorrow morning. If she is doing well with pain control will plan for discharge tomorrow with a drain Status: Acute Code(s): Z98.890 - Other specified postprocedural states; Z87.19 - Personal history of other diseases of the digestive system Attestations Medical Necessity Statement*: Postop seroma symptomatic requiring drain placement and for pain control Coding Level of Care Code Acute Process Development Manager for Chg Fwd Diagnoses History of incisional hernia repair Z98.890; Z87.19
[2019-04-24] MEDS: lidocaine 5% Patch TOPICAL (16:25)
[2019-04-24] MEDS: HYDROcodone-acetaminophen 10-325 mg Tablet 1 TAB PO (17:39)
[2019-04-24] MEDS: sennosides-docusate Tablet 1 TAB PO (19:14)
[2019-04-24] MEDS: hyDROXYzine 25 mg Capsule 50 MG PO (20:01)
[2019-04-25] VITALS (8 sets, daily range): BP systolic 96–104; BP diastolic 62–65; PULSE 66–77; RESP 16–20; TEMP 36.7–37.3; O2SAT 93–96
[2019-04-25] MEDS: HYDROcodone-acetaminophen 10-325 mg Tablet 1 TAB PO ×2 (05:25→17:10)
--- NOTE | 2019-04-25 06:01 | PC.NURSE ---
SHIFT SUMMARY Patient is here d/t abdominal wall seroma and cellulitis. Has a drian to medical abdomen and drained 150ml out this morning. Patient has c/o pain twice through the night. Recieved morphine the first time and hydrocodone the second and both were effective. At this time patient is resting in bed with eyes closed.
[2019-04-25] MEDS: cyclobenzaprine 10 mg Tablet 5 MG PO (08:23)
[2019-04-25] MEDS: lidocaine 5% Patch TOPICAL (08:23)
[2019-04-25] MEDS: sennosides-docusate Tablet 1 TAB PO (08:23)
[2019-04-25 08:33] LABS: Basophils % 0.4 %; Eosinophils # 0.3 10^3/uL (0.0-0.8); Eosinophils % 2.9 %; Hematocrit 36.2 % (37.0-47.0); Hemoglobin 11.5 g/dL (11.5-15.3); Lymphocytes # 2.3 10^3/uL (0.8-4.8); Lymphocytes % 22.9 %; Mean Corpuscular HGB Conc 31.8 g/dL (30.0-36.0); Mean Corpuscular Volume 94.5 fL (81-99); Mean Platelet Volume 10.4 fL (7.4-10.4); Monocytes # 1.2 10^3/uL (0.2-0.9); Monocytes % 11.7 %; Neutrophils # 6.2 10^3/uL (1.8-7.7); Neutrophils % 61.2 %; Nucleated Red Blood Cells % 0 %; Platelet Count 336 10^3/cmm (130-400); Red Blood Count 3.83 10^6/uL (4.1-5.3); Red Cell Distribution Width 15.6 % (12.1-15.1); White Blood Count 10.2 10^3/uL (4.0-10.0)
[2019-04-25 08:58] LABS: Alanine Aminotransferase 11 U/L (0-33); Albumin Level 2.5 g/dL (3.5-5.2); Alkaline Phosphatase 286 IU/L (35-105); Anion Gap 14.9 (5-19); Aspartate Amino Transferase 22 U/L (0-32); Blood Urea Nitrogen 7 mg/dL (6-20); Calcium 8.7 mg/dL (8.5-10.5); Carbon Dioxide 24 mmol/L (22-29); Chloride 100 mmol/L (98-107); Globulin 4.2 g/dL (1.3-4.6); Glucose 89 mg/dL (65-115); Osmolality Calculated 275 mOsm/kg (285-295); Potassium 3.9 mmol/L (3.5-5.1); Sodium 135 mmol/L (136-145); Total Bilirubin 0.8 mg/dL (0.15-1.2); Total Protein 6.7 g/dL (6.6-8.7)
[2019-04-25] MEDS: D5-NS 0.45% + KCL 20 mEq 20 MEQ/1,000 ML BAG 100 MEQ IV (09:03)
[2019-04-25] MEDS: oxyCODONE-APAP 5-325 mg Tablet 1 TAB PO (09:04)
--- NOTE | 2019-04-25 17:14 | P.DS_ITS ---
Discharge Providers Date of Admission: 04/24/19 13:00 Date of Discharge: April 25, 2019 Attending Provider at Admission: Darío Zavala MD Attending Provider at Discharge: Darío Zavala MD Primary Care Provider: Oriana Huff Diagnoses at Discharge Discharge Diagnosis (1) History of incisional hernia repair: Status: Acute Problem details: 04/10/19 : lap repair Reason for Visit Reason for Visit: Reason For Visit: abd pain/post op surgery Hospital Course Discharge Summary: The patient is admitted to the hospital after she presented to the ER again following a laparoscopic incisional hernia repair with worsening abdominal pain. A CT scan in the ER showed large hematoma/seroma anterior to the mesh. She underwent CT-guided drainage with 600 cc of fluid being drained. At time of discharge she was tolerating regular diet and ambulating and her pain is well controlled. Her incisions are clean dry and intact. The drain output was serosanguineous. Physical Exam Narrative: EXAM NARRATIVE: Abdomen: Soft, minimally tender, drain output is serosanguineous Discharge Data Data Completed and Pending: Completed Studies During Hospitalization Category Date Time Status CT abdomen pelvis w con* [id number] Stat Cat Scan 04/24/19 01:[address] guided drain[place] e [id number] Urgent Cat Scan 04/24/19 11:46 Completed Pending at discharge Category Date Time Status Blood Culture Sta t Lab 04/24/19 04:52 Results Cytology [PTH] Ro utine Pth 04/24/19 13:18 Received Labs from last 24 hours 04/25/19 04/25/19 05:10 05:10 WBC 10.2 H RBC 3.83 L Hgb 11.5 Hct 36.2 L MCV 94.5 MCH 30.0 MCHC 31.8 RDW 15.6 H Plt Count 336 MPV 10.4 Neut % (Auto) 61.2 Lymph % (Auto) 22.9 Jewell % (Auto) 11.7 Eos % (Auto) 2.9 Baso % (Auto) 0.4 Neut # (Auto) 6.2 Lymph # (Auto) 2.3 Jewell # (Auto) 1.2 H Eos # (Auto) 0.3 Baso # (Auto) 0.0 Nucleated RBC % (a uto) 0 Nucleated RBCs # 0.0 Sodium 135 L Potassium 3.9 Chloride 100 Carbon Dioxide 24 Anion Gap 14.9 BUN 7 Creatinine 0.5 GFR Calculation 136.0 H Glucose 89 Calculated Osmolal ity 275 L Calcium 8.7 Total Bilirubin 0.8 AST 22 ALT 11 Alkaline Phosphata se 286 H Total Protein 6.7 Albumin 2.5 L Globulin 4.2 Vitals: Last Vital Signs Temp 98.7 F 04/25/19 15:22 Pulse 73 04/25/19 15:22 Resp 16 04/25/19 15:22 BP 104/62 04/25/19 15:22 Pulse Ox 95 04/25/19 15:22 Discharge Plan Discharge Patient Disposition: Home, Self-Care Condition: Stable Prescriptions: New Keflex 500 mg capsule 500 mg PO Q8H 7 Days Qty: 21 RF: 0 Percocet 5-325 mg tablet 1 tab PO Q6H PRN (Reason: pain) Qty: 20 RF: 0 Continued albuterol sulfate 90 mcg/actuation HFA aerosol inhaler 2 puff INHALATION Q6H PRN (Reason: sob) RF: 0 azathioprine 100 mg tablet 100 mg PO DAILY RF: 0 hydrocodone-acetaminophen 10-325 mg tablet 1 tab PO Q8H PRN (Reason: pain) RF: 0 hydroxyzine HCl 50 mg tablet 50 mg PO BEDTIME RF: 0 ibuprofen 600 mg tablet 600 mg PO Q6H PRN (Reason: pain) RF: 0 lidocaine 5 % adhesive patch,medicated See Rx Instructions .ROUTE .COMPLEX RF: 0 loratadine 10 mg tablet 10 mg PO DAILY PRN (Reason: Allergy Symptoms) RF: 0 methocarbamol 750 mg tablet 750 mg PO DAILY PRN (Reason: pain) RF: 0 naproxen 500 mg tablet 500 mg PO BID PRN (Reason: Pain) RF: 0 omeprazole 40 mg capsule,delayed release(DR/EC) 40 mg PO DAILY RF: 0 ondansetron HCl 4 mg tablet 4 mg PO Q8H PRN (Reason: Nausea) RF: 0 pantoprazole 40 mg tablet,delayed release (DR/EC) 40 mg PO DAILY PRN (Reason: unknown) RF: 0 promethazine 6.25 mg/5 mL syrup 6.25 mg PO Q6H PRN (Reason: cough) RF: 0 Robafen CF (phenylephrine) 5-10-100 mg/5 mL liquid 10 ml PO Q6H PRN (Reason: cough) RF: 0 tizanidine 4 mg capsule 4 mg PO Q6H PRN (Reason: pain) RF: 0 ursodiol 250 mg tablet 250 mg PO BID RF: 0 benzonatate 200 mg capsule 200 mg PO TID PRN (Reason: pain) RF: 0 fluticasone propion-salmeterol [Wixela Inhub] 100-50 mcg/dose blister with device 1 puff INHALATION BID RF: 0 hydroxyzine HCl 25 mg tablet 25 mg PO BEDTIME PRN (Reason: unknown) RF: 0 albuterol sulfate 2.5 mg /3 mL (0.083 %) solution for nebulization 2.5 mg INHALATION QID RF: 0 cetirizine 10 mg tablet 10 mg PO DAILY RF: 0 docusate sodium [Colace] 100 mg capsule 100 mg PO BID Qty: 30 RF: 0 oxycodone-acetaminophen [Percocet] 5-325 mg tablet 1 tab PO Q6H PRN (Reason: pain) Qty: 20 RF: 0 Tylenol Extra Strength 500 mg Tablet 500 mg PO PRN RF: 0 Discharge Orders: Discharge Order (Routine); Ordered 04/25/19 Ordered By: Darío Zavala Referrals: [facility] [place] [facility] ([facility]) [Outside] Darío Zavala MD [Physician] - 04/29/19 1:00 pm (PLEASE CALL TD SURE YOUR APPOINTMENT) Oriana Huff FNP [Primary Care Provider] - (please call for appOINTMENT) Patient Instructions: Cephalexin (By mouth), Oxycodone/Acetaminophen (By mouth), Cellulitis (DC), Endoscopic Total Extraperitoneal Hernia Repair (DC) Discharge Date/Time: 04/25/19 18:17 Discharge Attestations Time Spent in Discharge Care*: less than 30 min Quality Metrics Clinical Quality Measures During this hospital stay, did patient experience: None Coding Level of Care Code Acute Health Tech for Chg Fwd Diagnoses History of incisional hernia repair Z98.890; Z87.19
--- NOTE | 2019-04-25 17:14 | P.PN_ITS ---
Subjective Subjective: Interval history: Patient stated feeling a lot better, vital signs are stable and she is ambulating without difficulty. She is is tolerating regular diet Vitals/I&O/Wt Last Vital Signs Temp 98.7 F 04/25/19 15:22 Pulse 73 04/25/19 15:22 Resp 16 04/25/19 15:22 BP 104/62 04/25/19 15:22 Pulse Ox 95 04/25/19 15:22 04/25/19 04/25/19 04/25/19 06:59 14:59 22:59 Intake Total 1378.333 / 2458.333 840 / 840 Output Total 150 / 950 Balance 1228.333 / 1508.333 840 / 840 Weight last 48 hrs Weight 224 lb Physical Exam Narrative: EXAM NARRATIVE: Abdomen: Soft, nondistended, minimally tender, incisions healing well, drain output is serosanguineous Data : 04/25/19 05:10 04/25/19 05:10 Micro: Microbiology 04/24/19 04:52 Blood Culture - Preliminary Blood NEGATIVE TO DATE 04/24/19 04:52 Blood Culture - Preliminary Blood NEGATIVE TO DATE A&P Assessment and plan (1) Postoperative seroma: Status post laparoscopic incisional hernia requiring drainage Plan for discharge home Teach drain care Follow-up in 4 days Status: Acute Attestations Medical Necessity Statement*: DC home today Coding Level of Care Code Acute Senior Major Gifts Officer for Eldon Urban Diagnoses Postoperative seroma
--- NOTE | 2019-04-25 18:16 | PC.NURSE ---
Prn discharge note Patient discharge instructions given per physician orders. New meds with side effects taught. Patient verbalized understanding. Iv removed with catheter intact. Pressure dressing applied. Patient tolerated well.
== END 2019-04-25 18:17 | disposition home or self-care (01) | DRG 920 ==
LOC: ER 04-24 10:46 → MEDSURG 04-25 07:42
PROVIDERS: Physician Assistant; Radiology Neuroradiology; Admitting Provider Surgery; Emergency Provider Family Medicine; PCP Nurse Practitioner Family; Visit Provider Surgery
PROC: 0W9G3ZX Drainage of Peritoneal Cavity, Percutaneous Approach, Diagnostic (ICD-10-PCS; CPT 75989; principal; 2019-04-24 11:30)
DX: K91.872 Postprocedural seroma of a digestive system organ or structure following a digestive system procedure (principal); D47.Z2 Castleman disease; F17.210 Nicotine dependence, cigarettes, uncomplicated; Z85.72 Personal history of non-Hodgkin lymphomas
CPT/HCPCS: 12345; 36415; 49406; 74177; 75989; 80053; 81001; 83605; 83690; 85025; 87040; 88304; 94640; 96365; 96374; 96375; 96376; 99283; 99285; J0690; J2250; J2270; J2310; J2405; J3010; J3490; J7040; J7500; Q9967

== ENCOUNTER 2019-04-23 20:56 | Emergency (ER) | payer MEDICAID, SELFPAY | END 2019-04-24 12:07 | disposition admitted as inpatient to this hospital (09) | LOC: ER 05-02 16:33 | PROVIDERS: Emergency Provider Family Medicine; PCP Nurse Practitioner Family | DX: Z01.89 Encounter for other specified special examinations (principal) | CPT/HCPCS: 12345; 36415; 74177; 80053; 85025; 87040; 96365; 96374; 96375; 96376; 99283; 99285; J0690; J2250; J2270; J2405; J7040; Q9967 ==

== ENCOUNTER 2019-04-27 12:38 | Emergency (ER) | payer MEDICAID, SELFPAY ==
[2019-04-27] VITALS (11 sets, daily range): BP systolic 102–115; BP diastolic 52–95; PULSE 76–85; RESP 16–20; TEMP 37.1; O2SAT 93–99; BMI 37.4
--- NOTE | 2019-04-27 12:39 | ED_ITS ---
Entered by Rosa Cox, acting as scribe for HPI - General Adult General: Chief complaint: Abdominal Pain Stated complaint: ABD PAIN Time Seen by Provider: 04/27/19 13:17 History of Present Illness: HPI narrative: 43 yo female presents with abd pain. Pt states that her pain started last night. Pt states that she had a mesh put in, has a drain in her abdomen. Pt states that when she went to use the restroom last night she accidentally tugged on the drain. Pt states that she has been vomiting from the pain. MD complaint: abd pain. Onset (ago): day(s) (1) Location: abdomen Radiation: abdomen Severity scale (1-10): 6 Quality: stabbing Pain Consistency: constant Relieving factors: none Exacerbating factors: movement Associated symptoms: Reports nausea and vomiting; Deny chest pain, dyspnea, malaise or rash Treatments prior to arrival: none Review of Systems Const: Denies: fever, chills, body aches, change in appetite, fatigue or malaise ENMT: Denies: throat pain, ear pain, nasal discharge or nasal congestion Card: Denies: chest pain, edema, shortness of breath on exertion or shortness of breath when lying down Resp: Denies: shortness of breath, productive cough or non-productive cough GI: Reports: abdominal pain, nausea and vomiting : Denies: flank pain, difficulty urinating, painful urination, urinary frequency or urinary urgency Musc: Denies: joint warmth Skin/Breast: Denies: rash or itching PFSH ED PFSH: Social History Smoking and tobacco status: never smoked Second hand smoke exposure: No Alcohol intake: never Adopted: No Caregiver/support person: Yes Lives independently: Yes Housing: House Marital status: Single service: No Current occupational status: disabled Current occupational exposures/hazards: No Pets and animals: No History of recent travel: No Leisure activites: exercise Sexually active: Yes Current gender identity: Female Female Reproductive History: Date of last menstrual period: 04/08/19 Physical Exam Const: COMMON NORMALS: no apparent distress GENERAL APPEARANCE: cooperative and comfortable ORIENTATION/CONSCIOUSNESS: Yes awake, Yes oriented to person, Yes oriented to place and Yes oriented to time HENMT: COMMON NORMALS: normocephalic, head/scalp atraumatic, hearing grossly normal bilaterally, external ears normal, EAC's normal, TM's normal bilaterally, nasal mucous membranes and turbinates normal, moist oral mucous membranes and oropharynx normal HEAD & SCALP: normocephalic and atraumatic NOSE: nasal mucous membranes and turbinates normal EXTERNAL EAR: Yes external ears normal EXTERNAL AUDITORY CANAL: EAC's normal TYMPANIC MEMBRANE: TM's normal bilaterally Eye: COMMON NORMALS: PERRL, EOMs intact bilaterally, conjunctivae normal and no scleral icterus CONJUNCTIVA: Yes conjunctivae normal PUPIL: Yes PERRL Neck/C-Spine: COMMON NORMALS: full ROM, no lymphadenopathy, supple and no JVD Lymph: LYMPHATIC: no lymphadenopathy noted and no lymphedema noted Resp: COMMON NORMALS: normal respiratory effort, no retractions, no use of accessory muscles and clear to auscultation bilaterally AUSCULTATION: clear to auscultation bilaterally Cardio: COMMON NORMALS: no JVD, regular rate, regular rhythm and no murmurs RATE: regular rate RHYTHM: regular rhythm GI: COMMON NORMALS: soft to palpation and no hepatosplenomegaly AUSCULTATION: Yes normoactive bowel sounds PALPATION: Yes soft, Yes tender, Yes guarding and Yes no hepatosplenomegaly OTHER: drain in left side of abdo men Extremity: COMMON NORMALS: normal to inspection, normal capillary refill, no clubbing, cyanosis or edema, no calf tenderness and no pedal edema Neuro: SENSORIUM/ORIENTATION: Yes oriented to person, Yes oriented to place and Yes oriented to time Skin: COMMON NORMALS: no rashes or lesions noted GENERAL SKIN EXAM: no rashes or lesions noted Course Vital Signs: Vital signs: Vital Signs Temperature 98.7 F 04/27/19 12:39 Pulse Rate 78 04/27/19 16:19 Respiratory Rate 16 04/27/19 16:19 Blood Pressure 102/61 04/27/19 16:19 Pulse Oximetry 94 04/27/19 16:19 MDM - General Adult MDM Narrative: Medical decision making narrative: Discussed with Dr. Zavala he recommends discharge home and follow-up in the office discussed with patient she is agreeable return if has worsening problems pain is improved by end of visit. Lab Data: Labs: Lab Results 04/27/19 04/27/19 04/27/19 Range/Units 12:24 12:24 13:55 WBC 7.9 (4.0-10.0) 10^3/ uL RBC 4.53 (4.1-5.3) 10^6/u L Hgb 13.3 (11.5-15.3) g/dL Hct 41.8 (37.0-47.0) % MCV 92.3 (81-99) fL MCH 29.4 (28.0-34.0) pg MCHC 31.8 (30.0-36.0) g/dL RDW 14.9 (12.1-15.1) % Plt Count 393 (130-400) 10^3/c mm MPV 10.5 H (7.4-10.4) fL Neut % (Auto) 62.4 % Lymph % (Auto) 22.2 % [place] % (Auto) 9.5 % Eos % (Auto) 4.4 % Baso % (Auto) 0.6 % Neut # (Auto) 4.9 (1.8-7.7) 10^3/u L Lymph # (Auto) 1.8 (0.8-4.8) 10^3/u L [place] # (Auto) 0.8 (0.2-0.9) 10^3/u L Eos # (Auto) 0.4 (0.0-0.8) 10^3/u L Baso # (Auto) 0.1 (0.0-0.1) 10^3/u L Nucleated RBC % (a uto) 0 % Nucleated RBCs # 0.0 /100WBC Sodium 137 (136-145) mmol/L Potassium 4.0 (3.5-5.1) mmol/L Chloride 98 (98-107) mmol/L Carbon Dioxide 27 (22-29) mmol/L Anion Gap 16.0 (5-19) BUN 5 L (6-20) mg/dL Creatinine 0.5 (0.5-0.9) mg/dL GFR Calculation 136.0 H (90-130) mL/min Glucose 141 H (65-115) mg/dL Calculated Osmolal ity 282 L (285-295) mOsm/k g Calcium 9.2 (8.5-10.5) mg/dL Total Bilirubin 1.1 (0.15-1.2) mg/dL AST 35 H (0-32) U/L ALT 14 (0-33) U/L Alkaline Phosphata se 401 H (35-105) IU/L Total Protein 7.7 (6.6-8.7) g/dL Albumin 3.1 L (3.5-5.2) g/dL Globulin 4.6 (1.3-4.6) g/dL Urine Color Yellow (Yellow) Urine Appearance Sl hazy (CLEAR) Urine pH 7 (5-7) Ur Specific Gravit y 1.015 (1.005-1.030) Urine Protein Neg (Negative) Urine Glucose (UA) Norm (Normal) Urine Ketones Negative (Negative) Urine Blood Neg (Negative) Urine Nitrate Negative (Negative) Urine Bilirubin Neg (NEGATIVE) Urine Urobilinogen 8 H (Negative) mg/dL Ur Leukocyte Jenni ase 1+ H (Negative) Urine RBC None (0-2) /hpf Urine WBC 15-25 H (0-5) /hpf Ur Squamous Epith Cells 5-10 H (0-5) Urine Bacteria 2+ H (NONE) Urine Mucus 1+ Influenza Type A A g (Negative) POC Influenza B Ag (Negative) 04/27/19 Range/Units 13:55 WBC (4.0-10.0) 10^3/ uL RBC (4.1-5.3) 10^6/u L Hgb (11.5-15.3) g/dL Hct (37.0-47.0) % MCV (81-99) fL MCH (28.0-34.0) pg MCHC (30.0-36.0) g/dL RDW (12.1-15.1) % Plt Count (130-400) 10^3/c mm MPV (7.4-10.4) fL Neut % (Auto) % Lymph % (Auto) % Adair % (Auto) % Eos % (Auto) % Baso % (Auto) % Neut # (Auto) (1.8-7.7) 10^3/u L Lymph # (Auto) (0.8-4.8) 10^3/u L Adair # (Auto) (0.2-0.9) 10^3/u L Eos # (Auto) (0.0-0.8) 10^3/u L Baso # (Auto) (0.0-0.1) 10^3/u L Nucleated RBC % (a uto) % Nucleated RBCs # /100WBC Sodium (136-145) mmol/L Potassium (3.5-5.1) mmol/L Chloride (98-107) mmol/L Carbon Dioxide (22-29) mmol/L Anion Gap (5-19) BUN (6-20) mg/dL Creatinine (0.5-0.9) mg/dL GFR Calculation (90-130) mL/min Glucose (65-115) mg/dL Calculated Osmolal ity (285-295) mOsm/k g Calcium (8.5-10.5) mg/dL Total Bilirubin (0.15-1.2) mg/dL AST (0-32) U/L ALT (0-33) U/L Alkaline Phosphata se (35-105) IU/L Total Protein (6.6-8.7) g/dL Albumin (3.5-5.2) g/dL Globulin (1.3-4.6) g/dL Urine Color (Yellow) Urine Appearance (CLEAR) Urine pH (5-7) Ur Specific Gravit y (1.005-1.030) Urine Protein (Negative) Urine Glucose (UA) (Normal) Urine Ketones (Negative) Urine Blood (Negative) Urine Nitrate (Negative) Urine Bilirubin (NEGATIVE) Urine Urobilinogen (Negative) mg/dL Ur Leukocyte Jenni ase (Negative) Urine RBC (0-2) /hpf Urine WBC (0-5) /hpf Ur Squamous Epith Cells (0-5) Urine Bacteria (NONE) Urine Mucus Influenza Type A A g Negative (Negative) POC Influenza B Ag Negative (Negative) Discharge Plan Discharge Patient Disposition: Home, Self-Care Clinical Impression: Postoperative seroma, History of incisional hernia repair Condition: Stable Prescriptions: No Action albuterol sulfate 90 mcg/actuation HFA aerosol inhaler 2 puff INHALATION Q6H PRN (Reason: sob) RF: 0 ibuprofen 600 mg tablet 600 mg PO Q6H PRN (Reason: pain) RF: 0 naproxen 500 mg tablet 500 mg PO BID PRN (Reason: Pain) RF: 0 omeprazole 40 mg capsule,delayed release(DR/EC) 40 mg PO DAILY RF: 0 ondansetron HCl 4 mg tablet 4 mg PO Q8H PRN (Reason: Nausea) RF: 0 pantoprazole 40 mg tablet,delayed release (DR/EC) 40 mg PO DAILY PRN (Reason: unknown) RF: 0 hydroxyzine HCl 25 mg tablet 25 mg PO BEDTIME PRN (Reason: unknown) RF: 0 albuterol sulfate 2.5 mg /3 mL (0.083 %) solution for nebulization 2.5 mg INHALATION QID RF: 0 cetirizine 10 mg tablet 10 mg PO DAILY PRN (Reason: Allergy Symptoms) RF: 0 oxycodone-acetaminophen [Percocet] 5-325 mg tablet 1 tab PO Q6H PRN (Reason: pain) Qty: 20 RF: 0 acetaminophen [Tylenol Extra Strength] 500 mg Tablet 500 mg PO PRN PRN (Reason: Pain) RF: 0 cephalexin [Keflex] 500 mg capsule 500 mg PO Q8H 7 Days Qty: 21 RF: 0 Colace 100 mg capsule 100 mg PO BID PRN (Reason: Constipation) RF: 0 Discharge Orders: Discharge Order (Routine); Ordered 04/27/19 Ordered By: Ck Hernandez Referrals: Darío Zavala MD [Physician] - Discharge Diet: Usual diet Discharge Activity: Increase activity as tolerated Activity Restrictions/Additional Instructions: Follow up with Dr. Zavala as previously scheduled on Monday. Discharge Date/Time: 04/27/19 16:34 Coding Level of Care Code ED Deputy Coroner Investigator for Chg Fwd Exam Comprehensive The documentation recorded by the Kenny swanson Kialy, accurately reflects the service I personally performed and the decisions made by Mary lipscomb Curtis L, DO Apr 27, 2019 12:38
[2019-04-27 13:35] LABS: Basophils # 0.1 10^3/uL (0.0-0.1); Basophils % 0.6 %; Eosinophils # 0.4 10^3/uL (0.0-0.8); Eosinophils % 4.4 %; Hematocrit 41.8 % (37.0-47.0); Hemoglobin 13.3 g/dL (11.5-15.3); Lymphocytes # 1.8 10^3/uL (0.8-4.8); Lymphocytes % 22.2 %; Mean Corpuscular HGB Conc 31.8 g/dL (30.0-36.0); Mean Corpuscular Hemoglobin 29.4 pg (28.0-34.0); Mean Corpuscular Volume 92.3 fL (81-99); Mean Platelet Volume 10.5 fL (7.4-10.4); Monocytes # 0.8 10^3/uL (0.2-0.9); Monocytes % 9.5 %; Neutrophils # 4.9 10^3/uL (1.8-7.7); Neutrophils % 62.4 %; Nucleated Red Blood Cells % 0 %; Platelet Count 393 10^3/cmm (130-400); Red Blood Count 4.53 10^6/uL (4.1-5.3); Red Cell Distribution Width 14.9 % (12.1-15.1); White Blood Count 7.9 10^3/uL (4.0-10.0)
[2019-04-27 13:38] LABS: Alanine Aminotransferase 14 U/L (0-33); Albumin Level 3.1 g/dL (3.5-5.2); Alkaline Phosphatase 401 IU/L (35-105); Blood Urea Nitrogen 5 mg/dL (6-20); Calcium 9.2 mg/dL (8.5-10.5); Carbon Dioxide 27 mmol/L (22-29); Chloride 98 mmol/L (98-107); Globulin 4.6 g/dL (1.3-4.6); Glucose 141 mg/dL (65-115); Osmolality Calculated 282 mOsm/kg (285-295); Sodium 137 mmol/L (136-145); Total Bilirubin 1.1 mg/dL (0.15-1.2); Total Protein 7.7 g/dL (6.6-8.7)
[2019-04-27 13:40] LABS: Slide Review Slide Review Perform
--- NOTE | 2019-04-27 13:41 | US_ITS ---
WS: [id number] ABDOMINAL ULTRASOUND LIMITED REASON FOR VISIT: confirm placement of drain TECHNIQUE: Grayscale and Doppler ultrasound examination of the abdomen. Findings: 2 pockets of fluid are seen in the region of the left mid abdomen 1 measured 4.53 x 3.6 by the other measured 5.40 x 5.25 cm. The drain is not seen in either the pockets of fluid. US/US abdomen limited [id number] IMPRESSION: 2 fluid density areas are seen to the left of the umbilicus most likely abscess es the drains are not seen definitely in the abscesses.
[2019-04-27 13:45] LABS: Aspartate Amino Transferase 35 U/L (0-32)
[2019-04-27] MEDS: ondansetron 2 mg/ML SDV 2 mL 4 MG IVP (13:53)
[2019-04-27] MEDS: morphine 4 mg/mL SDV 1 mL IVP (13:53)
[2019-04-27 14:20] LABS: Add Urine Microscopic? YES; Bilirubin Urine Neg (NEGATIVE); Blood Urine Neg (Negative); Glucose Urine UA Norm (Normal); Ketones Urine Negative (Negative); Leukocyte Esterase Urine 1+ (Negative); Nitrate Urine Negative (Negative); Protein Urine Neg (Negative); Specific Gravity, Urine 1.015 (1.005-1.030); Urine Appearance SL Hazy (CLEAR); Urine Color Yellow (Yellow); Urobilinogen Urine 8 mg/dL (Negative); pH Urine 7 (5-7)
--- NOTE | 2019-04-27 14:23 | PC.NURSE ---
US at bedside
[2019-04-27 14:24] LABS: Add Urine Culture? Yes; Bacteria Urine 2+; Mucus Urine 1+; WBC Urine 15-25 /hpf (0-5)
[2019-04-27 14:46] LABS: Influenza A by IFA Negative (Negative); Influenza B by IFA Negative (Negative)
[2019-04-27] MEDS: morphine 4 mg/mL SDV 1 mL 6 MG IVP (15:52)
--- NOTE | 2019-04-27 16:33 | PC.NURSE ---
Gilberto Close drain drained at bedside with return of 75ml of serosanguineous drainage with several mucous clots.
== END 2019-04-27 16:34 | disposition home or self-care (01) ==
PROVIDERS: Physician Assistant; Emergency Provider Family Medicine; PCP Nurse Practitioner Family
DX: K91.872 Postprocedural seroma of a digestive system organ or structure following a digestive system procedure (principal); Y83.8 Other surgical procedures as the cause of abnormal reaction of the patient, or of later complication, without mention of misadventure at the time of the procedure
CPT/HCPCS: 12345; 76705; 80053; 81001; 85025; 87086; 87804; 96374; 96375; 96376; 99283; A9270; J2270; J2405

== ENCOUNTER 2019-07-24 21:00 | Emergency (ER) | payer MEDICAID, SELFPAY ==
[2019-07-24 21:02] VITALS: BP 150/100; PULSE 68; RESP 20; TEMP 36.7; O2SAT 97; BMI 40.3
--- NOTE | 2019-07-24 22:06 | ED_ITS ---
HPI - Neuro Symptoms/Deficit General: Chief Complaint: Neuro Symptoms/Deficit Stated Complaint: neck pain/cancer Time Seen by Provider: 07/24/19 22:05 Source: patient Mode of arrival: ambulatory Limitations: no limitations History of Present Illness: HPI Narrative: 44-year-old female who has history of chronic headache states she had a headache that started 2 days ago. States headaches mainly at the base of her neck and top of her head and feels like her previous headaches. She denies this being the worst headache of her life. She denies any fever. She denies any neck stiffness. She denies any vomiting or diarrhea. 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 Incisional hernia Surgical History H/O esophagogastroduodenoscopy History of appendectomy History of cholecystectomy History of colonoscopy History of incisional hernia repair 04/10/19 : lap repair History of splenectomy History of tubal ligation Family History Grandmother Cancer Breast Denies family history of Anesthesia complication Bleeding disorder Social History Smoking and tobacco status: never smoked Second hand smoke exposure: No Alcohol intake: never Adopted: No Caregiver/support person: Yes Lives independently: Yes Housing: House Marital status: Single service: No Current occupational status: disabled Current occupational exposures/hazards: No Pets and animals: No History of recent travel: No Leisure activites: exercise Sexually active: Yes Current gender identity: Female Female Reproductive History: Date of last menstrual period: 04/08/19 Physical Exam Const: COMMON NORMALS: no acute distress, patient oriented x3 and healthy appearing HENMT: COMMON NORMALS: normocephalic and atraumatic HEAD & SCALP: normocephalic and atraumatic Eye: COMMON NORMALS: Equal, round and reactive pupils present and EOMs intact bilaterally PUPIL: Yes Equal, round and reactive pupils present Neck/C-Spine: COMMON NORMALS: full ROM and supple Chest: COMMONS NORMALS: normal inspection of the chest and normal palpation of entire chest wall Resp: COMMON NORMALS: normal respiratory effort, No retractions, No use of accessory muscles and clear to auscultation bilaterally AUSCULTATION: clear to auscultation bilaterally Cardio: COMMON NORMALS: regular rate, regular rhythm and No murmurs present (Cardio) RATE: regular rate RHYTHM: regular rhythm GI: COMMON NORMALS: Normal to inspection, nondistended, normoactive bowel sounds present, Soft to palpation, non-tender and no masses PALPATION: Yes Soft to palpation Extremity: COMMON NORMALS: normal to inspection and full ROM Neuro: COMMON NORMALS: patient oriented x3, moves all extremities and no focal motor deficits Psych: COMMON NORMALS: mental status grossly normal, Normal thought process present and cooperative THOUGHT PROCESS: Normal thought process present Skin: COMMON NORMALS: no rashes or lesions noted and no wounds GENERAL SKIN EXAM: no rashes or lesions noted Course Vital Signs: Vital signs: Vital Signs Temperature 98.0 F 07/24/19 21:02 Pulse Rate 68 07/24/19 21:02 Respiratory Rate 20 H 07/24/19 21:02 Blood Pressure 150/100 07/24/19 21:02 Pulse Oximetry 97 07/24/19 21:02 MDM - Neuro Symptoms/Deficit MDM Narrative: Medical decision making narrative: Patient presents here with a headache and has a history of chronic headaches. This headache is like her previous headaches she has no signs of meningitis or subarachnoid hemorrhage. Patient's headache is improved here after IV meds. She is stable for discharge and is to follow-up with her primary care doctor in 3 to 5 days and return if worsening. She understands agrees to plan. Discharge Plan Discharge Patient Disposition: Home, Self-Care Clinical Impression: Headache Qualifiers: Headache type: unspecified Headache chronicity pattern: acute headache Intractability: not intractable Qualified Code(s): R51 - Headache Condition: Stable Prescriptions: No Action albuterol sulfate 90 mcg/actuation HFA aerosol inhaler 2 puff INHALATION Q6H PRN (Reason: sob) RF: 0 ibuprofen 600 mg tablet 600 mg PO Q6H PRN (Reason: pain) RF: 0 naproxen 500 mg tablet 500 mg PO BID PRN (Reason: Pain) RF: 0 omeprazole 40 mg capsule,delayed release(DR/EC) 40 mg PO DAILY RF: 0 ondansetron HCl 4 mg tablet 4 mg PO Q8H PRN (Reason: Nausea) RF: 0 pantoprazole 40 mg tablet,delayed release (DR/EC) 40 mg PO DAILY PRN (Reason: unknown) RF: 0 hydroxyzine HCl 25 mg tablet 25 mg PO BEDTIME PRN (Reason: unknown) RF: 0 albuterol sulfate 2.5 mg /3 mL (0.083 %) solution for nebulization 2.5 mg INHALATION QID RF: 0 cetirizine 10 mg tablet 10 mg PO DAILY PRN (Reason: Allergy Symptoms) RF: 0 acetaminophen [Tylenol Extra Strength] 500 mg Tablet 500 mg PO PRN PRN (Reason: Pain) RF: 0 Colace 100 mg capsule 100 mg PO BID PRN (Reason: Constipation) RF: 0 Discharge Orders: Discharge Order (Routine); Ordered 07/24/19 Ordered By: Lily Morejon Referrals: Oriana Huff FNP [Primary Care Provider] - 1-3 days Discharge Diet: Advance as tolerated Discharge Activity: Resume usual activity Patient Instructions: Acute Headache (ED) Coding Level of Care Code ED Porcelain Enamel Sprayer for Chg Fwd Exam Comprehensive
[2019-07-24] MEDS: ketorolac 30 mg/mL INJ 15 MG IVP (22:29)
[2019-07-24] MEDS: metoclopramide 5 mg/mL SDV 2 mL 10 MG IVP (22:33)
[2019-07-24] MEDS: diphenhydrAMINE 50 mg/mL SDV 1mL IVP (22:38)
[2019-07-24] MEDS: sodium chloride 0.9% 1,000 ML 100 ML IV (22:39)
[2019-07-24 23:28] VITALS: BP 136/96; PULSE 76; RESP 16; O2SAT 98
== END 2019-07-24 23:38 | disposition home or self-care (01) ==
PROVIDERS: Emergency Provider Emergency Medicine; PCP Nurse Practitioner Family
DX: R51 Headache (principal); Z85.72 Personal history of non-Hodgkin lymphomas
CPT/HCPCS: 12345; 96361; 96374; 96375; 99282; 99283; J1200; J1885; J2765; J7030

== ENCOUNTER 2022-07-30 23:36 | Emergency (ER) | payer MEDICAID, SELFPAY ==
[2022-07-30 23:37] VITALS: BP 130/76; PULSE 83; RESP 16; TEMP 36.8; O2SAT 97
[2022-07-31 01:06] LABS: Basophils % 0.7 %; Eosinophils # 0.1 10^3/uL (0.0-0.8); Eosinophils % 2.1 %; Hematocrit 41.2 % (37.0-47.0); Hemoglobin 13.1 g/dL (11.5-15.3); Lymphocytes % 37.9 %; Mean Corpuscular HGB Conc 31.8 g/dL (30.0-36.0); Mean Corpuscular Hemoglobin 29.6 pg (28.0-34.0); Mean Corpuscular Volume 93.2 fl (81-99); Mean Platelet Volume 13.2 fL (7.4-10.4); Monocytes # 0.6 10^3/uL (0.2-0.9); Monocytes % 10.4 %; Neutrophils # 2.61 10^3/uL (1.8-7.7); Neutrophils % 48.7 %; Nucleated Red Blood Cells % 0 %; Platelet Count 326 10^3/cmm (130-400); Red Blood Count 4.42 10^6/uL (4.1-5.3); Red Cell Distribution Width 15.2 % (12.1-15.1); White Blood Count 5.4 10^3/uL (4.0-10.0)
[2022-07-31] MEDS: ondansetron 2 mg/ML SDV 2 mL 4 MG IVP ×2 (01:15→03:23)
--- NOTE | 2022-07-31 01:23 | CTR_ITS ---
PROCEDURE INFORMATION: Exam: CT Abdomen And Pelvis With Contrast Exam date and time: 07/31/2022 1:44 AM Age: 47 years old Clinical indication: Nausea and vomiting; Abdominal pain; Localized; Right upper quadrant (ruq); Prior surgery; Surgery date: 6+ months; Surgery type: Gb. Hernia repair. Appy. Tubal. Patient HX: Ruq pain with n/v. History of lymphoma. ; Additional info: Ruq pain, HX multiple surgeries TECHNIQUE: Imaging protocol: Computed tomography of the abdomen and pelvis with contrast. Radiation optimization: All CT scans at this facility use at least one of these dose optimization techniques: automated exposure control; mA and/or kV adjustment per patient size (includes targeted exams where dose is matched to clinical indication); or iterative reconstruction. Contrast material: OMNI 350; Contrast volume: 100 ml; Contrast route: INTRAVENOUS (IV); REPORTING DATA: Count of CT and Cardiac NM exams in prior 12 months: This patient has received 0 known CTs and 0 known cardiac nuclear medicine studies in the 12 months prior to the current study. COMPARISON: CT abdomen pelvis w con* [id number] 04/24/2019 3:17 AM RADIATION DOSE METRICS: Total DLP (mGy-cm): 1065.44 FINDINGS: Lungs: Nonspecific consolidation in the right lower lobe that may be secondary to atelectasis or in the appropriate clinical setting, pneumonia. Liver: The liver is normal in size. There are no enhancing liver masses. Gallbladder and bile ducts: There has been a cholecystectomy. Pancreas: The pancreas is normal. Spleen: There has been a splenectomy. Adrenal glands: The adrenal glands are normal. Kidneys and ureters: There are bilateral nonobstructing renal calculi, as large as 4 mm. Stomach and bowel: There is no evidence of small bowel or colonic obstruction. A large low-density mass in the stomach, not typical of a bezoar, as it does not contain gas. Neoplasm is suspected. (series 4, image 18; series 6, image 31; series 7, image 33) Appendix: There has been an appendectomy. Intraperitoneal space: No free air. No significant fluid collection. Vasculature: There is mild atherosclerotic calcification of the abdominal aorta and its branches without aneurysm. Lymph nodes: No enlarged retroperitoneal or mesenteric lymph nodes. Urinary bladder: The bladder is mostly decompressed. No bladder stones are identified. Reproductive: Unremarkable as visualized. Bones/joints: No acute fracture. Soft tissues: There has been surgical repair of a left paraumbilical hernia scar tissue seen in the subcutaneous adipose tissues of the left paraumbilical region. CT/CT abdomen pelvis w con* [id number] IMPRESSION: 1. A large low-density mass in the stomach suspicious for neoplasm in this patient with history of lymphoma. Lymphomatous involvement of the stomach is suspected. Consider endoscopy for further characterization if clinically indicated. 2. Nonspecific consolidation in the right lower lobe that may be secondary to atelectasis or in the appropriate clinical setting, pneumonia. 3. Status post splenectomy, cholecystectomy and appendectomy.
[2022-07-31] MEDS: HYDROmorphone 1 mg/mL INJ 1 mL IVP ×2 (01:26→03:23)
[2022-07-31 01:27] VITALS: BP 115/70; PULSE 66; RESP 16; O2SAT 94
[2022-07-31 01:43] LABS: HCG, Serum Qual Negative (Negative)
[2022-07-31 01:47] LABS: Bilirubin Urine Neg (Negative); Blood Urine 2+ (Negative); Glucose Urine UA Norm (Normal); Ketones Urine 1+ (Negative); Nitrate Urine Negative (Negative); Protein Urine Trace (Negative); Specific Gravity, Urine 1.025 (1.005-1.030); Urine Appearance Hazy (CLEAR); Urine Color Yellow (Yellow); Urobilinogen Urine 4 mg/dL (Negative); pH Urine 5 (5-7)
[2022-07-31 01:48] LABS: Add Urine Microscopic? YES; Leukocyte Esterase Urine 2+ (Negative)
[2022-07-31 01:50] LABS: Bacteria Urine 1+ /hpf; RBC Urine 0-4 /hpf (0-2)
[2022-07-31 01:51] LABS: Alanine Aminotransferase 23 U/L (0-33); Albumin Level 3.1 g/dL (3.5-5.2); Alkaline Phosphatase 476 U/L (35-105); Anion Gap 14.2 (5-19); Aspartate Amino Transferase 44 U/L (0-32); Blood Urea Nitrogen 15 mg/dL (6-20); C Reactive Protein 11.8 mg/L (0.0-4.9); Calcium 8.9 mg/dL (8.5-10.5); Carbon Dioxide 21 mmol/L (22-29); Chloride 106 mmol/L (98-107); Globulin 4.7 g/dL (1.3-4.6); Glomerular Filtration Rate 133.4 mL/min (90-130); Glucose 124 mg/dL (65-115); Lipase 39 U/L (13-60); Osmolality Calculated 286 mOsm/kg (285-295); Potassium 4.2 mmol/L (3.5-5.1); Sodium 137 mmol/L (136-145); Total Bilirubin 0.7 mg/dL (0.15-1.2); Total Protein 7.8 g/dL (6.6-8.7)
[2022-07-31 01:51] LABS: Add Urine Culture? Yes
[2022-07-31] MEDS: iohexol 350 mg/mL 500 mL Btl (per mL) IV (01:56)
[2022-07-31 02:00] VITALS: BP 134/85; PULSE 68; RESP 16; O2SAT 96
[2022-07-31 02:31] VITALS: BP 119/75; PULSE 64; RESP 16; O2SAT 96
--- NOTE | 2022-07-31 03:16 | ED_ITS ---
HPI - Abdominal Pain General: Chief Complaint: Abdominal Pain Stated Complaint: right pain Time Seen by Provider: 07/31/22 00:43 Source: patient History of Present Illness: 47-year-old female with right upper quadrant pain. She had a history of appendectomy and cholecystectomy. She has had pain on and off. Pain started tonight, and got worse this time went on. She is quite nauseated. No fever. No diarrhea. She said there was some blood in the vomit. No clots. MD elicited complaint: abdominal pain Pertinent past history: other Onset (ago): hour(s) Pain Consistency: constant Location: Epigastric and RUQ Severity: moderate Quality: stabbing Radiation: R flank Migration to: no migration Exacerbating factors: vomiting and movement Relieving factors: nothing Associated Symptoms: Reports nausea and vomiting; Denies chills, diarrhea, fever(s) and hematochezia Review of Systems Const: Denies: fever(s), chills or body aches Eyes: Denies: change in vision Card: Denies: chest pain or palpitations Resp: Denies: dyspnea, productive cough, non-productive cough or wheezing GI: Reports: abdominal pain, nausea and vomiting; Denies: diarrhea or hematochezia : Denies: difficulty voiding Skin/Breast: Denies: rash Neuro: Denies: headache(s), weakness in extremities, dizziness or confusion FOR[facility]LY [facility], [facility] ED PFSH: Medical History (Updated 07/31/22 @ 04:11 by Claudy Pike DO) 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 Incisional hernia Surgical History H/O esophagogastroduodenoscopy History of appendectomy History of cholecystectomy History of colonoscopy History of incisional hernia repair 04/10/19 : lap repair History of splenectomy History of tubal ligation Family History Grandmother Cancer Breast Denies family history of Anesthesia complication Bleeding disorder Social History Smoking and tobacco status: never smoked Second hand smoke exposure: No Alcohol intake: never Substance/Drug Use: never Adopted: No Caregiver/support person: Yes Lives independently: Yes Housing: House Marital status: Single service: No Current occupational status: disabled Current occupational exposures/hazards: No Pets and animals: No Leisure activites: exercise Sexually active: Yes Do you think of yourself as: Straight/Heterosexual Current gender identity: Female Physical Exam Const: COMMON NORMALS: no acute distress GENERAL APPEARANCE: cooperative; not ill appearing and not frail appearing HENMT: COMMON NORMALS: normocephalic, atraumatic and Normal external nose present HEAD & SCALP: normocephalic and atraumatic FACE & SINUS: normal facial exam and face symmetric NOSE: Normal external nose present Eye: COMMON NORMALS: Equal, round and reactive pupils present and EOMs intact bilaterally PUPIL: Yes Equal, round and reactive pupils present Neck/C-Spine: GENERAL: Yes trachea midline Chest: CHEST: Yes Symmetrical chest wall rise Resp: COMMON NORMALS: normal respiratory effort, No retractions, No use of accessory muscles and clear to auscultation bilaterally AUSCULTATION: clear to auscultation bilaterally Cardio: COMMON NORMALS: regular rate and regular rhythm RATE: regular rate RHYTHM: regular rhythm GI: COMMON NORMALS: Normal to inspection, nondistended, normoactive bowel sounds present PALPATION: Yes Tenderness to palpation present (GI) Details: RUQ and Yes Guarding due to palpation present (GI) Extremity: COMMON NORMALS: no pedal edema Neuro: AGATHA COMA SCALE: document GCS findings Remus coma scale eye opening: Spontaneous Remus coma scale verbal response: Orientated Remus coma scale motor response: Obey commands Remus coma scale total score: 15 SENSORY EXAM: Yes extremities (intact) Psych: COMMON NORMALS: speech normal SPEECH: Yes normal speech Skin: COMMON NORMALS: no rashes or lesions noted GENERAL SKIN EXAM: no rashes or lesions noted Course Vital Signs: Vital signs: Vital Signs Temperature 98.2 F 07/30/22 23:37 Pulse Rate 64 07/31/22 02:31 Respiratory Rate 16 07/31/22 02:31 Blood Pressure 119/75 07/31/22 02:31 Pulse Oximetry 96 07/31/22 02:31 Oxygen Delivery Me thod Room Air 07/30/22 23:37 MDM - Abdominal Pain Medical Decision Making No vomiting since here. CBC is normal. Vitals are good. BMP shows bicarbonate of 21. CT shows a gastric mass that is significant in size. Admission or transfer was offered to the patient. She requests to go home, she has a son that is home alone. I spoke with surgery. He will see her this week for medical screening and likely EGD. He recommends Carafate and Protonix until then. She is to return for worsening symptoms, especially worsening bleeding. Lab Data 07/31/22 00:45 07/31/22 01:10 Labs/Radiology: Radiology Impressions Abdomen/Pelvis CT 07/31/22 01:23 IMPRESSION: 1. A large low-density mass in the stomach suspicious for neoplasm in this patient with history of lymphoma. Lymphomatous involvement of the stomach is suspected. Consider endoscopy for further characterization if clinically indicated. 2. Nonspecific consolidation in the right lower lobe that may be secondary to atelectasis or in the appropriate clinical setting, pneumonia. 3. Status post splenectomy, cholecystectomy and appendectomy. Laboratory Results WBC 5.4 10^3/uL (4.0-10.0) 07/31/22 00:45 RBC 4.42 10^6/uL (4.1-5.3) 07/31/22 00:45 Hgb 13.1 g/dL (11.5-15.3) 07/31/22 00:45 Hct 41.2 % (37.0-47.0) 07/31/22 00:45 MCV 93.2 fl (81-99) 07/31/22 00:45 MCH 29.6 pg (28.0-34.0) 07/31/22 00:45 MCHC 31.8 g/dL (30.0-36.0) 07/31/22 00:45 RDW 15.2 % (12.1-15.1) H 07/31/22 00:45 Plt Count 326 10^3/cmm (130-400) 07/31/22 00:45 MPV 13.2 fL (7.4-10.4) H 07/31/22 00:45 Neut % (Auto) 48.7 % 07/31/22 00:45 Lymph % (Auto) 37.9 % 07/31/22 00:45 Clarke % (Auto) 10.4 % 07/31/22 00:45 Eos % (Auto) 2.1 % 07/31/22 00:45 Baso % (Auto) 0.7 % 07/31/22 00:45 Neut # (Auto) 2.61 10^3/uL (1.8-7.7) 07/31/22 00:45 Lymph # (Auto) 2.0 10^3/uL (0.8-4.8) 07/31/22 00:45 Clarke # (Auto) 0.6 10^3/uL (0.2-0.9) 07/31/22 00:45 Eos # (Auto) 0.1 10^3/uL (0.0-0.8) 07/31/22 00:45 Baso # (Auto) 0.0 10^3/uL (0.0-0.1) 07/31/22 00:45 Nucleated RBC % (auto) 0 % 07/31/22 00:45 Nucleated RBCs # 0.0 /100WBC 07/31/22 00:45 Sodium 137 mmol/L (136-145) 07/31/22 01:10 Potassium 4.2 mmol/L (3.5-5.1) 07/31/22 01:10 Chloride 106 mmol/L (98-107) 07/31/22 01:10 Carbon Dioxide 21 mmol/L (22-29) L 07/31/22 01:10 Anion Gap 14.2 (5-19) 07/31/22 01:10 BUN 15 mg/dL (6-20) 07/31/22 01:10 Creatinine 0.5 mg/dL (0.5-0.9) 07/31/22 01:10 GFR Calculation 133.4 mL/min (90-130) H 07/31/22 01:10 Glucose 124 mg/dL (65-115) H 07/31/22 01:10 Calculated Osmolality 286 mOsm/kg (285-295) 07/31/22 01:10 Calcium 8.9 mg/dL (8.5-10.5) 07/31/22 01:10 Total Bilirubin 0.7 mg/dL (0.15-1.2) 07/31/22 01:10 AST 44 U/L (0-32) H 07/31/22 01:10 ALT 23 U/L (0-33) 07/31/22 01:10 Alkaline Phosphatase 476 U/L (35-105) H 07/31/22 01:10 C-Reactive Protein 11.8 mg/L (0.0-4.9) H 07/31/22 01:10 Total Protein 7.8 g/dL (6.6-8.7) 07/31/22 01:10 Albumin 3.1 g/dL (3.5-5.2) L 07/31/22 01:10 Globulin 4.7 g/dL (1.3-4.6) H 07/31/22 01:10 Lipase 39 U/L (13-60) 07/31/22 01:10 HCG, Qual Negative (Negative) 07/31/22 01:10 Urine Color Yellow (Yellow) 07/31/22 00:54 Urine Appearance Hazy (CLEAR) A 07/31/22 00:54 Urine pH 5 (5-7) 07/31/22 00:54 Ur Specific [place] 1.025 (1.005-1.030) 07/31/22 00:54 Urine Protein Trace (Negative) 07/31/22 00:54 Urine Glucose (UA) Norm (Normal) 07/31/22 00:54 Urine Ketones 1+ (Negative) H 07/31/22 00:54 Urine Blood 2+ (Negative) H 07/31/22 00:54 Urine Nitrate Negative (Negative) 07/31/22 00:54 Urine Bilirubin Neg (Negative) 07/31/22 00:54 Urine Urobilinogen 4 mg/dL (Negative) H 07/31/22 00:54 Ur Leukocyte Esterase 2+ (Negative) H 07/31/22 00:54 Urine RBC 0-4 /hpf (0-2) H 07/31/22 00:54 Urine WBC 10-15 /hpf (0-5) H 07/31/22 00:54 Ur Squamous Epith Cells 5-10 /hpf (0-5) H 07/31/22 00:54 Amorphous Sediment Not Reportable 07/31/22 00:54 Urine Bacteria 1+ /hpf (NONE) H 07/31/22 00:54 Discharge Plan Discharge Patient Disposition: Home Clinical Impression: Gastric mass Condition: Stable Prescriptions: New sucralfate 1 gram tablet 1 g PO TID 28 Days Qty: 84 0RF Percocet 7.5-325 mg tablet 1 tab PO Q6H PRN (Reason: pain) Qty: 15 0RF Continued ondansetron HCl 4 mg tablet 4 mg PO Q8H PRN (Reason: Nausea) Qty: 30 0RF pantoprazole 40 mg tablet,delayed release (DR/EC) 40 mg PO DAILY PRN (Reason: unknown) Qty: 30 0RF Rx Instructions: pt states she takes this medication PRN No Action albuterol sulfate 90 mcg/actuation HFA aerosol inhaler 2 puff INHALATION Q6H PRN (Reason: sob) Rx Instructions: pt states she takes this medication ibuprofen 600 mg tablet 600 mg PO Q6H PRN (Reason: pain) naproxen 500 mg tablet 500 mg PO BID PRN (Reason: Pain) omeprazole 40 mg capsule,delayed release(DR/EC) 40 mg PO DAILY hydroxyzine HCl 25 mg tablet 25 mg PO BEDTIME PRN (Reason: unknown) albuterol sulfate 2.5 mg /3 mL (0.083 %) solution for nebulization 2.5 mg INHALATION QID Rx Instructions: pt states she takes this medication prn cetirizine 10 mg tablet 10 mg PO DAILY PRN (Reason: Allergy Symptoms) acetaminophen [Tylenol Extra Strength] 500 mg Tablet 500 mg PO PRN PRN (Reason: Pain) Colace 100 mg capsule 100 mg PO BID PRN (Reason: Constipation) Rx Instructions: pt states she takes PRN Discharge Orders: Discharge ED (Routine); Ordered 07/31/22 Ordered By: Claudy Pike Referrals: Remi Flores DO [Physician] - 1-3 days Patient Instructions: Hematemesis (ED), Opioid Safety, Pain Management, Vomiting - Adult Activity Restrictions/Additional Instructions: Return to the emergency department for vomiting large clots, worsening pain despite treatment, fever, other concerning symptoms. Case management will contact you at the beginning of the week regarding a surgery clinic appointment and scheduling an EGD/stomach scope. Surgery clinic numbers listed above. Medications as directed. Take the sucralfate 30 minutes prior to each meal. Consider starting with a liquid diet for the next 48 hours, and advancing slowly from there. Coding Level of Care Code ED Cutter Hot Knife for Eldon Urban
--- NOTE | 2022-07-31 05:13 | DCPLANNER ---
Addendum entered by Alia Florence 08/12/22 14:51: Patient had a follow up appointment scheduled with general surgery - patient did attend appointment. Original Note: manager process improvement had message to schedule a follow up appointment for patient with general surgery. manager process improvement sent patients information to the front office staff at general surgery. Patients information will be printed and reviewed. Clinic will call patient with appointment information.
== END 2022-07-31 04:24 | disposition home or self-care (01) ==
PROVIDERS: Emergency Provider Emergency Medicine
DX: K31.9 Disease of stomach and duodenum, unspecified (principal)
CPT/HCPCS: 36415; 74177; 80053; 81001; 83690; 84703; 85025; 86140; 87086; 96374; 96375; 96376; 99285; J1170; J2405; Q9967

== ENCOUNTER → 2022-08-04 14:22 | Day surgery (SDC) | payer MEDICAID, SELFPAY | PROVIDERS: PCP Registered Nurse; Visit Provider Surgery | DX: K92.0 Hematemesis (principal); K31.89 Other diseases of stomach and duodenum; D47.Z2 Castleman disease | CPT/HCPCS: 99203 ==

== ENCOUNTER 2022-08-05 10:29 | Emergency (ER) | payer MEDICAID, SELFPAY ==
[2022-08-05 10:33] VITALS: BP 122/71; PULSE 68; RESP 16; TEMP 36.9; O2SAT 95; BMI 35.5
--- NOTE | 2022-08-05 10:59 | ECG_ITS ---
[facility] Test Date: 2022-08-05 Pat Name: Deidre Hutchins Department: Room: Gender: Female Test Developer: : 1975 Requested By: Ck Grider Order Number: [id number] Mitesh MD: Patrick Amin M.D. Measurements Intervals [place] Rate: 67 P: 45 KS: 152 QRS: -11 QRSD: 83 T: 25 QT: 410 QTc: 435 Interpretive Statements SINUS RHYTHM POSSIBLE LEFT ATRIAL ENLARGEMENT [-0.1mV P-WAVE IN V1/V2] POSSIBLE LEFT VENTRICULAR HYPERTROPHY [VOLTAGE CRITERIA PLUS LAE OR QRS WIDENING] Compared to ECG 01/18/2019 19:34:07 T-wave abnormality no longer present Electronically Signed On 08-05-2022 15:47:42 CDT by Patrick Amin M.D. [email or web address]
--- NOTE | 2022-08-05 10:59 | XR_ITS ---
WS: [id number] Exam: XR chest 1V portable [id number] Date/Time of Exam: 08/05/2022 10:59 AM Reason For Exam: dyspnea/cough Comparison 01/18/2019. Findings: The lungs are clear and fully expanded. Costophrenic angles are sharp. No infiltrates. Bronchovascula r relief appears normal. Cardiac silhouette is unremarkable. Bony elements are intact. XR/XR chest 1V portable [id number] IMPRESSION: Unremarkable chest radiograph.
--- NOTE | 2022-08-05 11:56 | ED_ITS ---
HPI - Abdominal Pain General: Chief Complaint: Abdominal Pain Stated Complaint: N/V throwing up blood Time Seen by Provider: 08/05/22 10:59 Source: patient Mode of arrival: ambulatory History of Present Illness: 47-year-old female presents emergency room complaining of throwing up blood. She says she is has been having this for a month. She has some right upper quadrant pain radiating to her back. She was scheduled for an EGD today and was in outpatients and was redirected to the emergency room. She has seen Dr. 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 Earlier this month on the CT she was found to have a gastric mass. Patient reports right flank pain radiating into her back. Previous note from earlier this month reviewed MD elicited complaint: abdominal pain Onset (ago): month(s) (1) Pain Consistency: constant Location: R flank Severity: severe Quality: sharp Radiation: none Associated Symptoms: Reports hematemesis, nausea and vomiting; Denies bloating, chills, coffee ground emesis, constipation, diarrhea, dysuria, fever(s), hematochezia and melena Review of Systems Const: Denies: fever(s), chills, body aches, change in appetite, fatigue or malaise ENMT: Denies: throat pain, ear or mastoid pain, nasal discharge or nasal congestion Card: Denies: chest pain, edema, dyspnea on exertion or orthopnea Resp: Denies: dyspnea, productive cough or non-productive cough GI: Reports: nausea, vomiting and hematemesis; Denies: abdominal pain, coffee ground emesis, diarrhea, constipation, bloating, hematochezia or melena : Denies: flank pain, difficulty voiding, dysuria, urinary frequency or urinary urgency Skin/Breast: Denies: rash or pruritus PFSH ED PFSH: 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 Incisional hernia Surgical History H/O esophagogastroduodenoscopy History of appendectomy History of cholecystectomy History of colonoscopy History of incisional hernia repair 04/10/19 : lap repair History of splenectomy History of tubal ligation Family History Grandmother Cancer Breast Denies family history of Anesthesia complication Bleeding disorder Social History Smoking and tobacco status: never smoked Second hand smoke exposure: No Alcohol intake: never Substance/Drug Use: never Adopted: No Caregiver/support person: Yes Lives independently: Yes Housing: House Marital status: Single service: No Current occupational status: disabled Current occupational exposures/hazards: No Pets and animals: No Leisure activites: exercise Sexually active: Yes Do you think of yourself as: Straight/Heterosexual Current gender identity: Female Physical Exam Const: COMMON NORMALS: no acute distress GENERAL APPEARANCE: cooperative and comfortable ORIENTATION/CONSCIOUSNESS: Yes awake, Yes oriented to person, Yes oriented to place and Yes oriented to time HENMT: COMMON NORMALS: normocephalic, atraumatic and hearing grossly normal bilaterally HEAD & SCALP: normocephalic and atraumatic Resp: COMMON NORMALS: normal respiratory effort, No retractions, No use of accessory muscles and clear to auscultation bilaterally AUSCULTATION: clear to auscultation bilaterally Cardio: COMMON NORMALS: regular rate, regular rhythm and No murmurs present (Cardio) RATE: regular rate RHYTHM: regular rhythm GI: COMMON NORMALS: Soft to palpation and No hepatosplenomegaly present AUSCULTATION: Yes normoactive bowel sounds PALPATION: Yes Soft to palpation, No Tenderness to palpation present (GI), No Guarding due to palpation present (GI) and Yes No hepatosplenomegaly present Extremity: COMMON NORMALS: normal to inspection, capillary refill normal, no clubbing, cyanosis or edema, no calf tenderness and no pedal edema Neuro: SENSORIUM/ORIENTATION: Yes oriented to person, Yes oriented to place and Yes oriented to time Skin: COMMON NORMALS: no rashes or lesions noted GENERAL SKIN EXAM: no rashes or lesions noted Course Vital Signs: Vital signs: Vital Signs Temperature 98.4 F 08/05/22 10:33 Pulse Rate 68 08/05/22 10:33 Respiratory Rate 16 08/05/22 10:33 Blood Pressure 122/71 08/05/22 10:33 Pulse Oximetry 95 08/05/22 10:33 Oxygen Delivery Me thod Room Air 08/05/22 10:33 MDM - Abdominal Pain Medical Decision Making Labs are normal. Hemoglobin 15 hematocrit 45 1 patient had no episodes of v omiting in the emergency room did complain of nausea. Her vital signs are otherwise stable. Imaging reviewed from 625 did not repeat since her reported symptoms have not changed. Her alk phos is significantly elevated her transaminases very slightly elevated the AST but otherwise unremarkable. T. bili is normal. At this time she does not have symptoms suggestive of pancreatitis or blockage of the common bile duct. She has previously had had a cholecystectomy. After discussion with the patient we will discharge patient home and have her follow-up with surgeon for scheduling of a EGD. Medical Records I reviewed the patient's medical records. Lab Data I reviewed the patient's lab results. 08/05/22 12:03 08/05/22 12:03 Labs/Radiology: Radiology Impressions Chest X-Ray 08/05/22 10:59 IMPRESSION: Unremarkable chest radiograph. Laboratory Results WBC 3.8 10^3/uL (4.0-10.0) L 08/05/22 12:03 RBC 4.89 10^6/uL (4.1-5.3) 08/05/22 12:03 Hgb 15.0 g/dL (11.5-15.3) 08/05/22 12:03 Hct 45.1 % (37.0-47.0) 08/05/22 12:03 MCV 92.2 fl (81-99) 08/05/22 12:03 MCH 30.7 pg (28.0-34.0) 08/05/22 12:03 MCHC 33.3 g/dL (30.0-36.0) 08/05/22 12:03 RDW 14.5 % (12.1-15.1) 08/05/22 12:03 Plt Count 172 10^3/cmm (130-400) 08/05/22 12:03 MPV 9.7 fL (7.4-10.4) 08/05/22 12:03 Lymph % (Auto) Not Reportable 08/05/22 12:03 [place] % (Auto) Not Reportable 08/05/22 12:03 Lymph # (Auto) Not Reportable 08/05/22 12:03 [place] # (Auto) Not Reportable 08/05/22 12:03 Total Counted 100 (0-100) 08/05/22 12:03 Atypical Lymphs % 1.0 % (0-5) 08/05/22 12:03 Absolute Neutrophils 2.0 10^3/cmm (1.4-6.5) 08/05/22 12:03 Segmented Neutrophils 52 % 08/05/22 12:03 Abs Segm Neuts (Man) 2.0 10/cmm (1.6-7.1) 08/05/22 12:03 Band Neutrophils 0.0 % 08/05/22 12:03 Abs Band Neuts (Man) 0.0 10^3/cmm (0.0-1.2) 08/05/22 12:03 Absolute Lymphocytes 1.4 10^3/cmm (1.2-3.4) 08/05/22 12:03 Lymphocytes (Manual) 35 % 08/05/22 12:03 Monocytes (Manual) 8.0 % 08/05/22 12:03 Absolute Monocytes 0.3 10^3/cmm (0.1-0.6) 08/05/22 12:03 Eosinophils (Manual) 2 % 08/05/22 12:03 Absolute Eosinophils 0.0 10^3/cmm (0.0-0.7) 08/05/22 12:03 Basophils (Manual) 2.0 % 08/05/22 12:03 Absolute Basophils 0.1 10^3/cmm (0.0-0.2) 08/05/22 12:03 Metamyelocytes 0.0 % 08/05/22 12:03 Myelocytes 0.0 % 08/05/22 12:03 Promyelocytes 0.0 % 08/05/22 12:03 Nucleated RBCs 0.0 /100WBC (0-1) 08/05/22 12:03 Platelet Estimate Normal (Normal) 08/05/22 12:03 Target Cells 1+ H 08/05/22 12:03 PT 14.10 SECONDS (12.1-14.9) 08/05/22 12:03 INR 1.06 (0.8-1.2) 08/05/22 12:03 APTT 50.8 SECONDS (23.9-36.7) H 08/05/22 12:03 Sodium 139 mmol/L (136-145) 08/05/22 12:03 Potassium 4.0 mmol/L (3.5-5.1) 08/05/22 12:03 Chloride 106 mmol/L (98-107) 08/05/22 12:03 Carbon Dioxide 23 mmol/L (22-29) 08/05/22 12:03 Anion Gap 14.0 (5-19) 08/05/22 12:03 BUN 12 mg/dL (6-20) 08/05/22 12:03 Creatinine 0.6 mg/dL (0.5-0.9) 08/05/22 12:03 GFR Calculation 108.1 mL/min (90-130) 08/05/22 12:03 Glucose 80 mg/dL (65-115) 08/05/22 12:03 Calculated Osmolality 287 mOsm/kg (285-295) 08/05/22 12:03 Calcium 8.7 mg/dL (8.5-10.5) 08/05/22 12:03 Total Bilirubin 1.0 mg/dL (0.15-1.2) 08/05/22 12:03 AST 49 U/L (0-32) H 08/05/22 12:03 ALT 25 U/L (0-33) 08/05/22 12:03 Alkaline Phosphatase 513 U/L (35-105) H 08/05/22 12:03 Total Protein 8.5 g/dL (6.6-8.7) 08/05/22 12:03 Albumin 3.5 g/dL (3.5-5.2) 08/05/22 12:03 Globulin 5.0 g/dL (1.3-4.6) H 08/05/22 12:03 Discharge Plan Discharge Patient Disposition: Home Clinical Impression: Gastric mass, Castlemans disease Condition: Stable Prescriptions: New promethazine 25 mg tablet 25 mg PO Q6H PRN (Reason: nausea and vomiting) Qty: 20 0RF No Action albuterol sulfate 90 mcg/actuation HFA aerosol inhaler 2 puff INHALATION Q6H PRN (Reason: sob) Rx Instructions: pt states she takes this medication omeprazole 40 mg capsule,delayed release(DR/EC) 40 mg PO DAILY hydroxyzine HCl 25 mg tablet 25 mg PO BEDTIME PRN (Reason: unknown) albuterol sulfate 2.5 mg /3 mL (0.083 %) solution for nebulization 2.5 mg INHALATION QID Rx Instructions: pt states she takes this medication prn cetirizine 10 mg tablet 10 mg PO DAILY PRN (Reason: Allergy Symptoms) acetaminophen [Tylenol Extra Strength] 500 mg Tablet 500 mg PO PRN PRN (Reason: Pain) Colace 100 mg capsule 100 mg PO BID PRN (Reason: Constipation) Rx Instructions: pt states she takes PRN sucralfate 1 gram tablet 1 g PO TID 28 Days Qty: 84 0RF ondansetron HCl 4 mg tablet 4 mg PO Q8H PRN (Reason: Nausea) Qty: 30 0RF pantoprazole 40 mg tablet,delayed release (DR/EC) 40 mg PO DAILY PRN (Reason: unknown) Qty: 30 0RF Rx Instructions: pt states she takes this medication PRN Percocet 7.5-325 mg tablet 1 tab PO Q6H PRN (Reason: pain) Qty: 15 0RF Discharge Orders: Discharge ED (Routine); Ordered 08/05/22 Ordered By: Ck Hernandez Referrals: Dahiana Graham [Primary Care Provider] - Discharge Diet: Full LIquid Discharge Activity: Increase activity as tolerated Patient Instructions: Opioid Safety, Pain Management Activity Restrictions/Additional Instructions: Follow-up with your doctor to schedule outpatient EGD. You had indicated you are going to pursue this through your doctor at [facility] in [place]. If you need assistance please contact your primary care doctor or Dr. Flores's office. Coding Level of Care Code ED [employer] for [facility]on Urban
[2022-08-05 12:13] LABS: Hematocrit 45.1 % (37.0-47.0); Mean Corpuscular HGB Conc 33.3 g/dL (30.0-36.0); Mean Corpuscular Hemoglobin 30.7 pg (28.0-34.0); Mean Corpuscular Volume 92.2 fl (81-99); Mean Platelet Volume 9.7 fL (7.4-10.4); Platelet Count 172 10^3/cmm (130-400); Red Blood Count 4.89 10^6/uL (4.1-5.3); Red Cell Distribution Width 14.5 % (12.1-15.1); White Blood Count 3.8 10^3/uL (4.0-10.0)
[2022-08-05 12:24] LABS: INR 1.06 (0.8-1.2)
[2022-08-05 12:25] LABS: Partial Thromboplastin Time 50.8 SECONDS (23.9-36.7)
[2022-08-05 12:29] LABS: Alanine Aminotransferase 25 U/L (0-33); Albumin Level 3.5 g/dL (3.5-5.2); Alkaline Phosphatase 513 U/L (35-105); Aspartate Amino Transferase 49 U/L (0-32); Blood Urea Nitrogen 12 mg/dL (6-20); Calcium 8.7 mg/dL (8.5-10.5); Carbon Dioxide 23 mmol/L (22-29); Chloride 106 mmol/L (98-107); Glomerular Filtration Rate 108.1 mL/min (90-130); Glucose 80 mg/dL (65-115); Osmolality Calculated 287 mOsm/kg (285-295); Sodium 139 mmol/L (136-145); Total Protein 8.5 g/dL (6.6-8.7)
[2022-08-05 12:30] LABS: Slide Review Slide Review Perform
[2022-08-05 12:51] LABS: Basophils Absolute 0.1 10^3/cmm (0.0-0.2); Eosinophils 2 %; Lymphocytes 35 %; Lymphocytes Absolute 1.4 10^3/cmm (1.2-3.4); Monocytes Absolute 0.3 10^3/cmm (0.1-0.6); Platelet Estimate Normal (Normal); Segmented Neutrophils 52 %; Target Cells 1+; Total Cells Counted 100 (0-100)
--- NOTE | 2022-08-05 14:04 | PC.NURSE ---
assumed care for PT at 1340 PT was DC'D at this time.
== END 2022-08-05 14:07 | disposition home or self-care (01) ==
PROVIDERS: Emergency Provider Family Medicine; PCP Registered Nurse
DX: K31.9 Disease of stomach and duodenum, unspecified (principal); D47.Z2 Castleman disease; Z85.72 Personal history of non-Hodgkin lymphomas
CPT/HCPCS: 71045; 80053; 85007; 85025; 85610; 85730; 93005; 99285